=== PATIENT | male | born 1965 | race Caucasian/White ===

== ENCOUNTER 2018-09-16 07:09 | Day surgery (SDC) | payer MEDICARE, MEDICAID ==
[~2018-09-16 07:09] MED LIST: Lidocaine 2% Viscous Solution 15 ML Cup ONE; Lidocaine 4% Top Soln 50 ML Bottle ONE
[2018-09-16] MEDS ORDERED: Dextrose 5%-Lactated Ringers 1,000 ML IV SCH (07:15)
[2018-09-16] MEDS ORDERED: Propofol 200 MG/20 ML SDV ONE ×2 (07:16→09:40)
[2018-09-16] MEDS ORDERED: fentaNYL 100 MCG/2 ML SDV ONE (07:16)
[2018-09-16] MEDS ORDERED: Midazolam 1 MG/ML 2 ML SDV ONE (07:16)
[2018-09-16] MEDS ORDERED: Lidocaine 4% Top Soln LTA 4 ML Syringe Kit ONE (07:16)
[2018-09-16 11:15] VITALS: BP 102/59
--- NOTE | 2018-09-19 12:00 | OR ---
DATE OF PROCEDURE: 09/16/2018 PREOPERATIVE DIAGNOSIS: Left upper lobe mass. POSTOPERATIVE DIAGNOSIS: Left upper lobe mass. PROCEDURE: Flexible bronchoscopy with tracheobronchial washings: 1. Brushings to left upper lobe (69855). 2. Bronchoalveolar lavage to left upper lobe (68060). ANESTHESIA: IV sedation plus topical. 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 Plan is to do flexible bronchoscopy with brushings and/or BAL as indicated. The lesion was fairly peripheral and not amenable to direct a biopsy from a bronchoscopic approach. Potential risks of the procedure including bleeding, infection, aspiration of gastric contents and such were reviewed, and the patient wishes to proceed. DETAILS OF PROCEDURE: The patient was taken to the operating room and placed in the supine position. IV sedation was administered, after which the nasal passages and pharynx were then anesthetized with 1% lidocaine and translaryngeal injection of lidocaine placed per anesthesia. Bronchoscope was passed to the left side of the nose. Visualized nasopharynx and hypopharynx were unremarkable. Cord motion was symmetrical. As one entered the trachea, there is no splaying of the tracheal course. There is generally some mucoid secretions present throughout the tracheobronchial tree. The right tracheobronchial tree was entirely normal. Grossly, the left side was likewise normal other than for the mucosal secretions. At this point, diffuse tracheobronchial washings were obtained. The lesion appears to be in the anterior segment of the left upper lobe. Given this, two sets of brushings were obtained distally in that area and sent for cytologic evaluation. Following this, with occlusion of the anterior segmental bronchus, 200 mL of saline was injected and bronchoalveolar lavage accomplished with ejaculation of fluid in 2 containers and sent for full workup. There were no other complications. The patient was taken to the recovery room in satisfactory condition after withdrawal of the scope. The plan will be to await the cytologic evaluation. If these are diagnostic, we will set the patient up with Medical Oncology. If not, we will set him up for a CT- guided needle biopsy of the fairly large peripheral left upper lobe lesion later next week. Joseph Francisco MD /[id number] [facility]
== END 2018-09-16 12:15 | disposition home or self-care (01) ==
LOC: JP.SDS 07:09
PROVIDERS: ATTEND Surgery
DX: R91.1 Solitary pulmonary nodule (principal); B95.3 Streptococcus pneumoniae as the cause of diseases classified elsewhere; F17.210 Nicotine dependence, cigarettes, uncomplicated
CPT/HCPCS: 31624; 87015; 87070; 87102; 87116; 87184; 87205; 87206; 87220; A9270; J2250; J2704; J3010; J7042; 88112; 88305

== ENCOUNTER 2018-10-10 06:27 | Inpatient (IN) | payer MEDICARE, MEDICAID ==
[2018-10-10] MEDS ORDERED: Acetaminophen 500 MG Tab PO ONE (06:45)
[2018-10-10] MEDS ORDERED: Meropenem 500 MG SDV ONE (07:08)
[2018-10-10] MEDS ORDERED: Bupivacaine 0.5%/EPINEPHrine 1:200,000 50 ML MDV ONE (07:08)
[2018-10-10] MEDS ORDERED: Albuterol 0.083% 2.5 MG/3 ML Neb Soln NEB ONE (07:31)
[2018-10-10] MEDS ORDERED: Albuterol/Ipratropium 3.0-0.5 MG/3 ML Neb Soln ONE (07:37)
[2018-10-10] MEDS ORDERED: Dextrose 5%-Lactated Ringers 1,000 ML IV SCH (08:00)
[2018-10-10] MEDS ORDERED: Naloxone 0.4 MG/ML SDV IVPUSH PRN (08:34)
[2018-10-10] MEDS ORDERED: fentaNYL 250 MCG/5 ML SDV ONE (08:35)
[2018-10-10] MEDS ORDERED: Sodium Chloride 0.9% 500 ML ONE (08:43)
[2018-10-10] MEDS ORDERED: Rocuronium 50 MG/5 ML Vial ONE ×2 (08:43→10:37)
[2018-10-10] MEDS ORDERED: Neostigmine Methylsulfate 1 MG/ML 5 ML Syringe ONE (08:43)
[2018-10-10] MEDS ORDERED: Succinylcholine 200 MG/10 ML MDV ONE (08:43)
[2018-10-10] MEDS ORDERED: Propofol 200 MG/20 ML SDV ONE (08:43)
[2018-10-10] MEDS ORDERED: Glycopyrrolate 0.2 MG/ML 5 ML MDV ONE (08:43)
[2018-10-10] MEDS ORDERED: Dexamethasone 4 MG/ML SDV ONE (08:43)
[2018-10-10] MEDS ORDERED: Heparin Sodium 5,000 Units/ML Vial ONE (08:43)
[2018-10-10] MEDS ORDERED: Ondansetron 4 MG/2 ML SDV ONE (08:43)
[2018-10-10] MEDS ORDERED: Lidocaine 1% 2 ML ONE (08:57)
[2018-10-10] MEDS ORDERED: Midazolam 1 MG/ML 2 ML SDV ONE (08:58)
[2018-10-10] MEDS ORDERED: ceFAZolin 2 GM in Premix Bag 1 BAG IV ONE (09:15)
[2018-10-10] MEDS ORDERED: Lactated Ringers 1,000 ML ONE (09:45)
[2018-10-10] MEDS ORDERED: fentaNYL 100 MCG/2 ML SDV ONE (09:46)
[2018-10-10] MEDS ORDERED: Sodium Chloride 0.9% 10 ML ONE (09:46)
--- NOTE | 2018-10-10 13:32 | CR ---
CHEST: Portable CLINICAL HISTORY:Left thoracotomy COMPARISON:09/29/2018 FINDINGS: Patient is status post left thoracotomy for partial laminectomy. There are 2 left chest tubes in place. There is subcutaneous air. There is a right jugular catheter in superior vena cava. Right lung is clear. Impression: Status post left partial pneumonectomy tubes and catheters are in good position.
[2018-10-10] MEDS ORDERED: Ondansetron 4 MG/2 ML SDV IVPUSH PRN (14:41)
[2018-10-10] MEDS ORDERED: hydrOXYzine HCl 100 MG/2 ML SDV IM PRN (14:42)
[2018-10-10] MEDS: fentaNYL 2,500 MCG in Sodium Chloride 0.9% 200 ML EPIDUR SCH (14:49)
[2018-10-10] MEDS: Dextrose 5%-Lactated Ringers 1,000 ML IV SCH ×2 (15:34→21:00)
[2018-10-10] MEDS: Pantoprazole 40 MG Vial IV SCH (16:20)
[2018-10-10] MEDS: ceFAZolin 2 GM in Premix Bag 1 BAG IV SCH (16:22)
[2018-10-10] MEDS: Nicotine 21 MG/24 Hr Patch TRDERM SCH (17:54)
[2018-10-10] MEDS: Acetaminophen 500 MG Tab PO SCH (20:51)
[2018-10-10] MEDS: atorvaSTATin 20 MG Tab PO SCH (20:51)
[2018-10-11] MEDS: ceFAZolin 2 GM in Premix Bag 1 BAG IV SCH ×3 (01:21→16:06)
[2018-10-11] MEDS: Acetaminophen 500 MG Tab PO SCH ×4 (01:29→20:15)
[2018-10-11] MEDS: Dextrose 5%-Lactated Ringers 1,000 ML IV SCH ×3 (03:16→21:14)
--- NOTE | 2018-10-11 06:53 | PCM.PN ---
- General Info Date of Service: 10/11/18 Functional Status: Reports: Pain Controlled, Tolerating Diet - Review of Systems General: Reports: No Symptoms HEENT: Reports: No Symptoms Pulmonary: Reports: No Symptoms Cardiovascular: Reports: No Symptoms Gastrointestinal: Reports: No Symptoms Genitourinary: Reports: No Symptoms Musculoskeletal: Reports: No Symptoms Skin: Reports: No Symptoms Neurological: Reports: No Symptoms Psychiatric: Reports: No Symptoms - Patient Data Vitals - Most Recent: Last Vital Signs Temp 36.7 C 10/11/18 04:00 Pulse 49 L 10/11/18 05:51 Resp 17 10/11/18 05:51 BP 102/38 L 10/11/18 05:51 Pulse Ox 96 10/11/18 05:51 Weight - Most Recent: 82.1 kg I&O - Last 24 Hours: Intake & Output 10/10/18 10/10/18 10/11/18 14:59 22:59 06:59 Intake Total 796 1939 Output Total 200 1555 Balance 596 384 Imaging Impressions - Last 24 Hours: Chest x-ray shows good inflation of L lower lobe of lung. Lung markings throughout all lung dominguez. Subcutaneous air noted which is normal at this time. High riding diaphragm on L side which is normal due to lobectomy. Lab Results Last 24 Hours: Laboratory Results - last 24 hr 10/10/18 10/10/18 10/10/18 Range/Units 07:00 07:15 12:40 WBC (4.5-11.0) K/uL RBC (4.30-5.90) M/uL Hgb (12.0-15.0) g/dL Hct (40.0-54.0) % MCV (80-98) fL MCH (27-31) pg MCHC (32-36) % Plt Count (150-400) K/uL Bleeding Time 6.0 (2.5-9.5) min Puncture Site A-line ABG pH 7.297 L (7.350-7.450) ABG pCO2 54.2 H (35.0-42.0) mmHg ABG pO2 85.9 (75.0-100.0) mmHg ABG HCO3 25.7 (22.0-26.0) mmol/L ABG Total CO2 23.3 (23.0-27.0) mmol/L ABG O2 Saturation 95.2 (95.0-98.0) % ABG O2 Content 17.6 (15.0-23.0) %vol ABG Base Excess -1.1 mm/L ABG Hemoglobin 13.7 (13.5-18.0) g/dL ABG Oxyhemoglobin 91.2 % ABG Carboxyhemoglobin 3.4 H (0.0-1.6) % ABG Methemoglobin 0.8 % Toi Test Not performed O2 Delivery Device Nasal cannula Oxygen Flow Rate L Sodium (140-148) mmol/L Potassium (3.6-5.2) mmol/L Chloride (100-108) mmol/L Carbon Dioxide (21-32) mmol/L Anion Gap (5.0-14.0) mmol/L BUN (7-18) mg/dL Creatinine (0.8-1.3) mg/dL Est Cr Clr Drug Dosing mL/min Estimated GFR (MDRD) (>60) Glucose (74-106) mg/dL Calcium (8.5-10.1) mg/dL Phosphorus (2.5-4.9) mg/dL Magnesium (1.8-2.4) mg/dL Total Bilirubin (0.2-1.0) mg/dL AST (15-37) U/L ALT (12-78) U/L Alkaline Phosphatase (46-116) U/L NT-Pro-B Natriuret Pep (5-125) pg/mL Total Protein (6.4-8.2) g/dL Albumin (3.4-5.0) g/dL Globulin (2.3-3.5) g/dL Albumin/Globulin Ratio (1.2-2.2) Blood Type A POSITIVE Gel Antibody Screen Negative Crossmatch See Detail 10/10/18 10/11/18 10/11/18 Range/Units 17:00 04:05 04:05 WBC 14.6 H (4.5-11.0) K/uL RBC 4.06 L (4.30-5.90) M/uL Hgb 12.3 D (12.0-15.0) g/dL Hct 37.0 L (40.0-54.0) % MCV 91 (80-98) fL MCH 30 (27-31) pg MCHC 33 (32-36) % Plt Count 225 (150-400) K/uL Bleeding Time (2.5-9.5) min Puncture Site A-line ABG pH 7.355 (7.350-7.450) ABG pCO2 46.4 H (35.0-42.0) mmHg ABG pO2 61.4 L (75.0-100.0) mmHg ABG HCO3 25.2 (22.0-26.0) mmol/L ABG Total CO2 22.8 L (23.0-27.0) mmol/L ABG O2 Saturation 91.2 L (95.0-98.0) % ABG O2 Content 16.0 (15.0-23.0) %vol ABG Base Excess -0.1 mm/L ABG Hemoglobin 13.0 L (13.5-18.0) g/dL ABG Oxyhemoglobin 87.9 % ABG Carboxyhemoglobin 2.9 H (0.0-1.6) % ABG Methemoglobin 0.7 % Toi Test A-line O2 Delivery Device Nasal cannula Oxygen Flow Rate 0 L Sodium 137 L (140-148) mmol/L Potassium 4.4 (3.6-5.2) mmol/L Chloride 102 (100-108) mmol/L Carbon Dioxide 28 (21-32) mmol/L Anion Gap 11.4 (5.0-14.0) mmol/L BUN 13 (7-18) mg/dL Creatinine 0.7 L (0.8-1.3) mg/dL Est Cr Clr Drug Dosing 132.41 mL/min Estimated GFR (MDRD) > 60 (>60) Glucose 142 H (74-106) mg/dL Calcium 8.4 L (8.5-10.1) mg/dL Phosphorus 3.0 (2.5-4.9) mg/dL Magnesium 1.6 L (1.8-2.4) mg/dL Total Bilirubin 0.4 (0.2-1.0) mg/dL AST 44 H (15-37) U/L ALT 29 (12-78) U/L Alkaline Phosphatase 48 (46-116) U/L NT-Pro-B Natriuret Pep 723 H (5-125) pg/mL Total Protein 6.2 L (6.4-8.2) g/dL Albumin 3.1 L (3.4-5.0) g/dL Globulin 3.1 (2.3-3.5) g/dL Albumin/Globulin Ratio 1.0 L (1.2-2.2) Blood Type Gel Antibody Screen Crossmatch 10/11/18 Range/Units 04:10 WBC (4.5-11.0) K/uL RBC (4.30-5.90) M/uL Hgb (12.0-15.0) g/dL Hct (40.0-54.0) % MCV (80-98) fL MCH (27-31) pg MCHC (32-36) % Plt Count (150-400) K/uL Bleeding Time (2.5-9.5) min Puncture Site Line ABG pH 7.403 (7.350-7.450) ABG pCO2 42.1 H (35.0-42.0) mmHg ABG pO2 98.5 (75.0-100.0) mmHg ABG HCO3 25.8 (22.0-26.0) mmol/L ABG Total CO2 23.2 (23.0-27.0) mmol/L ABG O2 Saturation 97.9 (95.0-98.0) % ABG O2 Content 16.6 (15.0-23.0) %vol ABG Base Excess 1.4 mm/L ABG Hemoglobin 12.4 L (13.5-18.0) g/dL ABG Oxyhemoglobin 94.5 % ABG Carboxyhemoglobin 2.8 H (0.0-1.6) % ABG Methemoglobin 0.7 % Toi Test O2 Delivery Device Nasal cannula Oxygen Flow Rate 2 L Sodium (140-148) mmol/L Potassium (3.6-5.2) mmol/L Chloride (100-108) mmol/L Carbon Dioxide (21-32) mmol/L Anion Gap (5.0-14.0) mmol/L BUN (7-18) mg/dL Creatinine (0.8-1.3) mg/dL Est Cr Clr Drug Dosing mL/min Estimated GFR (MDRD) (>60) Glucose (74-106) mg/dL Calcium (8.5-10.1) mg/dL Phosphorus (2.5-4.9) mg/dL Magnesium (1.8-2.4) mg/dL Total Bilirubin (0.2-1.0) mg/dL AST (15-37) U/L ALT (12-78) U/L Alkaline Phosphatase (46-116) U/L NT-Pro-B Natriuret Pep (5-125) pg/mL Total Protein (6.4-8.2) g/dL Albumin (3.4-5.0) g/dL Globulin (2.3-3.5) g/dL Albumin/Globulin Ratio (1.2-2.2) Blood Type Gel Antibody Screen Crossmatch Med Orders - Current: Current Medications Acetaminophen (Tylenol Extra Strength) 1,000 mg PO Q6H [facility] Last Admin: 10/11/18 01:29 Dose: 1,000 mg Aripiprazole (Abilify) 15 mg PO DAILY [facility] Aspirin (Halfprin) 81 mg PO DAILY [facility] Atorvastatin Calcium (Lipitor) 40 mg PO BEDTIME [facility] Last Admin: 10/10/18 20:51 Dose: 40 mg Escitalopram Oxalate (Lexapro) 20 mg PO DAILY [facility] Hydroxyzine HCl (Vistaril) 100 mg IM Q4H PRN PRN Reason: PAIN Fentanyl 2,500 mcg/ Sodium (Chloride) 250 mls @ 0 mls/hr EPIDUR TITRATE [facility]; Protocol Last Admin: 10/10/18 14:49 Dose: 120 mcg/hr, 12 mls/hr Dextrose/Lactated Ringer's (Dextrose 5%-Lactated Ringers) 1,000 mls @ 175 mls/ hr IV ASDIRECTED [facility] Last Admin: 10/11/18 03:16 Dose: 175 mls/hr Cefazolin Sodium/Dextrose 2 gm (/ Premix) 50 mls @ 100 mls/hr IV Q8H [facility] Stop: 10/13/18 09:29 Last Admin: 10/11/18 01:21 Dose: 100 mls/hr Lisinopril (Prinivil) 2.5 mg PO DAILY [facility] Naloxone HCl (Narcan) 0.1 mg IVPUSH Q5M PRN PRN Reason: RESP RATE LESS THAN 6/MINUTE Nicotine (Habitrol) 21 mg TRDERM DAILY [facility] Last Admin: 10/10/18 17:54 Dose: 21 mg Ondansetron HCl (Zofran) 4 mg IVPUSH Q4H PRN PRN Reason: Nausea Pantoprazole Sodium (Protonix Iv) 40 mg IV Q24H [facility] Last Admin: 10/10/18 16:20 Dose: 40 mg Ramelteon (Rozerem) 8 mg PO BEDTIME [facility] Last Admin: 10/10/18 20:51 Dose: 8 mg Discontinued Medications Acetaminophen (Tylenol Extra Strength) 1,000 mg PO ONETIME ONE Stop: 10/10/18 06:46 Last Admin: 10/10/18 06:53 Dose: 1,000 mg Albuterol (Proventil Neb Soln) 2.5 mg NEB ONETIME ONE Stop: 10/10/18 07:32 Last Admin: 10/10/18 07:48 Dose: 2.5 mg Albuterol/Ipratropium (Duoneb 3.0-0.5 Mg/3 Ml) Confirm Administered Dose 3 ml .ROUTE .STK-MED ONE Stop: 10/10/18 07:38 Last Admin: 10/10/18 11:02 Dose: Not Given Bupivacaine HCl/Epinephrine Bitart (Marcaine 0.5%/Epinephrine 1:200,000) Confirm Administered Dose 50 ml .ROUTE .STK-MED ONE Stop: 10/10/18 07:09 Last Admin: 10/10/18 10:18 Dose: 50 ml Dexamethasone (Dexamethasone) Confirm Administered Dose 4 mg .ROUTE .STK-MED ONE Stop: 10/10/18 08:44 Fentanyl (Sublimaze) Confirm Administered Dose 250 mcg .ROUTE .STK-MED ONE Stop: 10/10/18 08:36 Fentanyl (Sublimaze) Confirm Administered Dose 100 mcg .ROUTE .STK-MED ONE Stop: 10/10/18 09:47 Glycopyrrolate (Robinul) Confirm Administered Dose 1 mg .ROUTE .STK-MED ONE Stop: 10/10/18 08:44 Heparin Sodium (Porcine) (Heparin Sodium) Confirm Administered Dose 5,000 units .ROUTE .STK-MED ONE Stop: 10/10/18 08:44 Cefazolin Sodium/Dextrose 2 gm (/ Premix) 50 mls @ 100 mls/hr IV ONETIME ONE Stop: 10/10/18 09:44 Last Admin: 10/10/18 09:45 Dose: 100 mls/hr Dextrose/Lactated Ringer's (Dextrose 5%-Lactated Ringers) 1,000 mls @ 100 mls/ hr IV ASDIRECTED [facility] Last Admin: 10/10/18 07:35 Dose: 100 mls/hr Sodium Chloride (Normal Saline) Confirm Administered Dose 500 mls @ as directed .ROUTE .STK-MED ONE Stop: 10/10/18 08:44 Lidocaine HCl (Xylocaine-Mpf 1%) Confirm Administered Dose 2 mls @ as directed .ROUTE .STK-MED ONE Stop: 10/10/18 08:58 Lactated Ringer's (Ringers, Lactated) Confirm Administered Dose 1,000 mls @ as directed .ROUTE .STK-MED ONE Stop: 10/10/18 09:46 Sodium Chloride (Normal Saline) Confirm Administered Dose 10 mls @ as directed .ROUTE .ST-MED ONE Stop: 10/10/18 09:47 Acetaminophen (Ofirmev) 100 mls @ 400 mls/hr IV Q6H [facility] Stop: 10/10/18 14:14 Last Admin: 10/10/18 13:57 Dose: 400 mls/hr Meropenem (Merrem) Confirm Administered Dose 500 mg .ROUTE .ST-MED ONE Stop: 10/10/18 07:09 Last Admin: 10/10/18 10:18 Dose: 500 mg Midazolam HCl (Versed 1 Mg/Ml) Confirm Administered Dose 2 mg .ROUTE .ST-MED ONE Stop: 10/10/18 08:59 Neostigmine Methylsulfate (Neostigmine) Confirm Administered Dose 5 mg .ROUTE .ST-MED ONE Stop: 10/10/18 08:44 Ondansetron HCl (Zofran) Confirm Administered Dose 4 mg .ROUTE .ST-MED ONE Stop: 10/10/18 08:44 Propofol (Diprivan 20 Ml) Confirm Administered Dose 200 mg .ROUTE .STK-MED ONE Stop: 10/10/18 08:44 Rocuronium [place] (Zemuron) Confirm Administered Dose 50 mg .ROUTE .STK-MED ONE Stop: 10/10/18 08:44 Rocuronium [place] (Zemuron) Confirm Administered Dose 50 mg .ROUTE .STK-MED ONE Stop: 10/10/18 10:38 Succinylcholine Chloride (Quelicin) Confirm Administered Dose 200 mg .ROUTE .ST -MED ONE Stop: 10/10/18 08:44 - Exam General: Alert, Oriented HEENT: Pupils Equal, Pupils Reactive, EOMI, Mucous Membr. Moist/[place] Neck: Supple Lungs: Clear to Auscultation, Normal Respiratory Effort Cardiovascular: Regular Rate, Regular Rhythm Extremities: Normal Inspection, No Pedal Edema Skin: Warm, Dry, Intact Wound/Incisions: Healing Well Neurological: No New Focal Deficit Psy/Mental Status: Alert, Normal Affect, Normal Mood Physical Findings Comments:: Chest tube output is , the fluid is fluctuating in the tube, no bubbles in container, and chest x-ray as noted above. - Problem List & Annotations (1) Status post lobectomy of lung SNOMED Code(s): 76557680557334204, 707917231, [id number] Code(s): Z90.2 - ACQUIRED ABSENCE OF LUNG [PART OF] Status: Resolved Priority: Medium Current Visit: Yes - Problem List Review Problem List Initiated/Reviewed/Updated: Yes - My Orders Last 24 Hours: Decrease IV to 100 ? Begin metoprolol 25 mg PO BID Begin lisinopril 2.5 mg PO daily Begin magnesium sulfate 2 g IV piggyback q6 hours x48 hours Begin colace 100 mg BID 2x/day Begin full liquid diet Continue daily chest x-rays Order CBC, CMP, phosphate, BNP - Assessment Assessment:: 52 YO male patient Steven Jett is a post surgical patient of L upper lung lobectomy. Is in the ICU and pain is being tolerated well. Chest tube is draining well, is fluctuating, does not have bubbles, and chest x-ray has lung markings throughout. Chest x-rays will continue daily. ROS is negative for all pertinent positives or negatives. Patient will be continually monitored closely. No questions or concerns at this time. - Plan Plan:: Begin medications as noted. Monitor labs as noted.
[2018-10-11] MEDS: fentaNYL 2,500 MCG in Sodium Chloride 0.9% 200 ML EPIDUR SCH (07:19)
[2018-10-11] MEDS ORDERED: Metoprolol Tartrate 25 MG Tab PO SCH (09:00)
[2018-10-11] MEDS: Aspirin 81 MG Tab.EC PO SCH (09:09)
[2018-10-11] MEDS: Escitalopram 20 MG Tab PO SCH (09:09)
[2018-10-11] MEDS: Docusate Sodium 100 MG Cap PO SCH ×2 (09:09→20:15)
[2018-10-11] MEDS: ARIPiprazole 10 MG Tab PO SCH (09:10)
[2018-10-11] MEDS: Nicotine 21 MG/24 Hr Patch TRDERM SCH (09:11)
[2018-10-11] MEDS: Lisinopril 2.5 MG Tab PO SCH (09:45)
[2018-10-11] MEDS: Magnesium Sulfate/Water 2 GM in Premix Bag 1 BAG IV SCH ×3 (09:50→21:09)
[2018-10-11] MEDS: Pantoprazole 40 MG Vial IV SCH (16:43)
[2018-10-11] MEDS: atorvaSTATin 20 MG Tab PO SCH (20:16)
[2018-10-12] MEDS: ceFAZolin 2 GM in Premix Bag 1 BAG IV SCH ×3 (00:28→16:59)
[2018-10-12] MEDS: Acetaminophen 500 MG Tab PO SCH ×4 (01:11→20:13)
[2018-10-12] MEDS: Magnesium Sulfate/Water 2 GM in Premix Bag 1 BAG IV SCH ×4 (03:22→21:10)
[2018-10-12] MEDS: fentaNYL 2,500 MCG in Sodium Chloride 0.9% 200 ML EPIDUR SCH (03:40)
[2018-10-12] MEDS ORDERED: Furosemide 20 MG/2 ML VIAL IVPUSH ONE (08:00)
[2018-10-12] MEDS: Bisacodyl 5 MG Tab PO SCH ×2 (08:35→20:13)
[2018-10-12] MEDS: ARIPiprazole 10 MG Tab PO SCH (08:35)
[2018-10-12] MEDS: Nicotine 21 MG/24 Hr Patch TRDERM SCH (08:36)
[2018-10-12] MEDS: Docusate Sodium 100 MG Cap PO SCH ×2 (08:36→20:13)
[2018-10-12] MEDS: Escitalopram 20 MG Tab PO SCH (08:37)
[2018-10-12] MEDS: Aspirin 81 MG Tab.EC PO SCH (08:37)
[2018-10-12] MEDS: Metoprolol Tartrate 25 MG Tab PO SCH ×2 (08:38→20:15)
[2018-10-12] MEDS: Clopidogrel 75 MG Tab PO SCH (08:38)
[2018-10-12] MEDS: Lisinopril 2.5 MG Tab PO SCH (08:39)
[2018-10-12] MEDS: Dextrose 5%-Lactated Ringers 1,000 ML IV SCH ×2 (12:31→22:36)
--- NOTE | 2018-10-12 15:59 | PCM.SURGPN ---
- General Info Date of Service: 10/12/18 Date of Surgery/Procedure: 10/10/18 Post-Op Diagnosis: Post op resection left lung mass with medistinal lymph node disection - Review of Systems Systems Review Comment:: 52 YO male Steven Jett is day 2 post op from resection of left lung mass with mediastinal lymph node dissection. Patient is in the ICU. The patient's pain is controlled with a spinal epidural and scheduled Tylenol PO. The patient does not have any pertinent positives or negatives to note from ROS but did not he was dizzy. The chest x-ray continues to show subcutaneous air, lung markings extending to all lung dominguez, and a high riding L diaphragm and this is to be expected. His chest tube is in place without any signs of infection. The fluid in the tubing is fluctuating; however, bubbles are appearing in the container which indicates an air leak. The fluid output was 1,350 in 24 hours. - Patient Data Vitals - Most Recent: Last Vital Signs Temp 36.6 C 10/12/18 14:55 Pulse 62 10/12/18 14:55 Resp 14 10/12/18 14:55 BP 103/74 10/12/18 14:55 Pulse Ox 91 L 10/12/18 14:55 Weight - Most Recent: 82.1 kg I&O - Last 24 Hours: Intake & Output 10/12/18 10/12/18 10/12/18 06:59 14:59 22:59 Intake Total 1360 Output Total 1825 2885 Balance -1825 -1525 Imaging Impressions - Last 24 Hrs: Noted in subjective. Lab Results Last 24 Hrs: Laboratory Results - last 24 hr 10/12/18 10/12/18 10/12/18 Range/Units 03:12 03:15 03:17 WBC 13.4 H (4.5-11.0) K/uL RBC 3.96 L (4.30-5.90) M/uL Hgb 11.9 L (12.0-15.0) g/dL Hct 36.0 L (40.0-54.0) % MCV 91 (80-98) fL MCH 30 (27-31) pg MCHC 33 (32-36) % Plt Count 197 (150-400) K/uL Puncture Site A-line ABG pH 7.372 (7.350-7.450) ABG pCO2 50.4 H (35.0-42.0) mmHg ABG pO2 71.3 L (75.0-100.0) mmHg ABG HCO3 28.5 H (22.0-26.0) mmol/L ABG Total CO2 26.0 (23.0-27.0) mmol/L ABG O2 Saturation 94.2 L (95.0-98.0) % ABG O2 Content 15.7 (15.0-23.0) %vol ABG Base Excess 3.0 mm/L ABG Hemoglobin 12.1 L (13.5-18.0) g/dL ABG Oxyhemoglobin 91.9 % ABG Carboxyhemoglobin 1.7 H (0.0-1.6) % ABG Methemoglobin 0.7 % Toi Test A-line O2 Delivery Device Nasal cannula Oxygen Flow Rate 2 L Sodium 132 L (140-148) mmol/L Potassium 4.1 (3.6-5.2) mmol/L Chloride 99 L (100-108) mmol/L Carbon Dioxide 30 (21-32) mmol/L Anion Gap 7.1 (5.0-14.0) mmol/L BUN 10 (7-18) mg/dL Creatinine 0.6 L (0.8-1.3) mg/dL Est Cr Clr Drug Dosing 154.70 mL/min Estimated GFR (MDRD) > 60 (>60) Glucose 129 H (74-106) mg/dL Calcium 7.9 L (8.5-10.1) mg/dL Phosphorus 2.2 L (2.5-4.9) mg/dL Total Bilirubin 0.4 (0.2-1.0) mg/dL AST 41 H (15-37) U/L ALT 27 (12-78) U/L Alkaline Phosphatase 51 (46-116) U/L NT-Pro-B Natriuret Pep 1160 H (5-125) pg/mL Total Protein 6.0 L (6.4-8.2) g/dL Albumin 3.0 L (3.4-5.0) g/dL Globulin 3.0 (2.3-3.5) g/dL Albumin/Globulin Ratio 1.0 L (1.2-2.2) Med Orders - Current: Current Medications Acetaminophen (Tylenol Extra Strength) 1,000 mg PO Q6H [facility] Last Admin: 10/12/18 14:52 Dose: 1,000 mg Aripiprazole (Abilify) 15 mg PO DAILY [facility] Last Admin: 10/12/18 08:35 Dose: 15 mg Aspirin (Halfprin) 81 mg PO DAILY [facility] Last Admin: 10/12/18 08:37 Dose: 81 mg Atorvastatin Calcium (Lipitor) 40 mg PO BEDTIME [facility] Last Admin: 10/11/18 20:16 Dose: 40 mg Bisacodyl (Dulcolax) 10 mg PO BID [facility] Last Admin: 10/12/18 08:35 Dose: 10 mg Clopidogrel Bisulfate (Plavix) 75 mg PO DAILY [facility] Last Admin: 10/12/18 08:38 Dose: 75 mg Docusate Sodium (Colace) 100 mg PO BID [facility] Last Admin: 10/12/18 08:36 Dose: 100 mg Escitalopram Oxalate (Lexapro) 20 mg PO DAILY [facility] Last Admin: 10/12/18 08:37 Dose: 20 mg Hydroxyzine HCl (Vistaril) 100 mg IM Q4H PRN PRN Reason: PAIN Fentanyl 2,500 mcg/ Sodium (Chloride) 250 mls @ 0 mls/hr EPIDUR TITRATE [facility]; Protocol Last Admin: 10/12/18 03:40 Dose: 120 mcg/hr, 12 mls/hr Cefazolin Sodium/Dextrose 2 gm (/ Premix) 50 mls @ 100 mls/hr IV Q8H [facility] Stop: 10/13/18 09:29 Last Admin: 10/12/18 08:25 Dose: 100 mls/hr Dextrose/Lactated Ringer's (Dextrose 5%-Lactated Ringers) 1,000 mls @ 100 mls/ hr IV ASDIRECTED [facility] Last Admin: 10/12/18 12:31 Dose: 100 mls/hr Magnesium Sulfate 2 gm/ Premix 50 mls @ 12.5 mls/hr IV Q6H [facility] Stop: 10/13/18 07:59 Last Admin: 10/12/18 10:23 Dose: 12.5 mls/hr Lisinopril (Prinivil) 2.5 mg PO DAILY [facility] Last Admin: 10/12/18 08:39 Dose: 2.5 mg Metoprolol Tartrate (Lopressor) 25 mg PO BID [facility] Last Admin: 10/12/18 08:38 Dose: 25 mg Naloxone HCl (Narcan) 0.1 mg IVPUSH Q5M PRN PRN Reason: RESP RATE LESS THAN 6/MINUTE Nicotine (Habitrol) 21 mg TRDERM DAILY [facility] Last Admin: 10/12/18 08:36 Dose: 21 mg Ondansetron HCl (Zofran) 4 mg IVPUSH Q4H PRN PRN Reason: Nausea Pantoprazole Sodium (Protonix Iv) 40 mg IV Q24H [facility] Last Admin: 10/11/18 16:43 Dose: 40 mg Ramelteon (Rozerem) 8 mg PO BEDTIME [facility] Last Admin: 10/11/18 20:16 Dose: 8 mg Discontinued Medications Acetaminophen (Tylenol Extra Strength) 1,000 mg PO ONETIME ONE Stop: 10/10/18 06:46 Last Admin: 10/10/18 06:53 Dose: 1,000 mg Albuterol (Proventil Neb Soln) 2.5 mg NEB ONETIME ONE Stop: 10/10/18 07:32 Last Admin: 10/10/18 07:48 Dose: 2.5 mg Albuterol/Ipratropium (Duoneb 3.0-0.5 Mg/3 Ml) Confirm Administered Dose 3 ml .ROUTE .STK-MED ONE Stop: 10/10/18 07:38 Last Admin: 10/10/18 11:02 Dose: Not Given Bupivacaine HCl/Epinephrine Bitart (Marcaine 0.5%/Epinephrine 1:200,000) Confirm Administered Dose 50 ml .ROUTE .STK-MED ONE Stop: 10/10/18 07:09 Last Admin: 10/10/18 10:18 Dose: 50 ml Dexamethasone (Dexamethasone) Confirm Administered Dose 4 mg .ROUTE .STK-MED ONE Stop: 10/10/18 08:44 Fentanyl (Sublimaze) Confirm Administered Dose 250 mcg .ROUTE .STK-MED ONE Stop: 10/10/18 08:36 Fentanyl (Sublimaze) Confirm Administered Dose 100 mcg .ROUTE .STK-MED ONE Stop: 10/10/18 09:47 Furosemide (Lasix) 10 mg IVPUSH ONETIME ONE Stop: 10/12/18 08:01 Last Admin: 10/12/18 08:29 Dose: 10 mg Glycopyrrolate (Robinul) Confirm Administered Dose 1 mg .ROUTE .[facility]-MED ONE Stop: 10/10/18 08:44 Heparin Sodium (Porcine) (Heparin Sodium) Confirm Administered Dose 5,000 units .ROUTE .K-MED ONE Stop: 10/10/18 08:44 Cefazolin Sodium/Dextrose 2 gm (/ Premix) 50 mls @ 100 mls/hr IV ONETIME ONE Stop: 10/10/18 09:44 Last Admin: 10/10/18 09:45 Dose: 100 mls/hr Dextrose/Lactated Ringer's (Dextrose 5%-Lactated Ringers) 1,000 mls @ 100 mls/ hr IV ASDIRECTED [facility] Last Admin: 10/10/18 07:35 Dose: 100 mls/hr Sodium Chloride (Normal Saline) Confirm Administered Dose 500 mls @ as directed .ROUTE .[facility]-MED ONE Stop: 10/10/18 08:44 Lidocaine HCl (Xylocaine-Mpf 1%) Confirm Administered Dose 2 mls @ as directed .ROUTE .[facility]-MED ONE Stop: 10/10/18 08:58 Lactated Ringer's (Ringers, Lactated) Confirm Administered Dose 1,000 mls @ as directed .ROUTE .[facility]-MED ONE Stop: 10/10/18 09:46 Sodium Chloride (Normal Saline) Confirm Administered Dose 10 mls @ as directed .ROUTE .[facility]-MED ONE Stop: 10/10/18 09:47 Acetaminophen (Ofirmev) 100 mls @ 400 mls/hr IV Q6H [facility] Stop: 10/10/18 14:14 Last Admin: 10/10/18 13:57 Dose: 400 mls/hr Dextrose/Lactated Ringer's (Dextrose 5%-Lactated Ringers) 1,000 mls @ 175 mls/ hr IV ASDIRECTED [facility] Last Admin: 10/11/18 03:16 Dose: 175 mls/hr Meropenem (Merrem) Confirm Administered Dose 500 mg .ROUTE .STK-MED ONE Stop: 10/10/18 07:09 Last Admin: 10/10/18 10:18 Dose: 500 mg Metoprolol Tartrate (Lopressor) 25 mg PO BID [facility] Last Admin: 10/11/18 09:50 Dose: 25 mg Midazolam HCl (Versed 1 Mg/Ml) Confirm Administered Dose 2 mg .ROUTE .STK-MED ONE Stop: 10/10/18 08:59 Neostigmine Methylsulfate (Neostigmine) Confirm Administered Dose 5 mg .ROUTE .STK-MED ONE Stop: 10/10/18 08:44 Ondansetron HCl (Zofran) Confirm Administered Dose 4 mg .ROUTE .STK-MED ONE Stop: 10/10/18 08:44 Propofol (Diprivan 20 Ml) Confirm Administered Dose 200 mg .ROUTE .STK-MED ONE Stop: 10/10/18 08:44 Rocuronium Nelson (Zemuron) Confirm Administered Dose 50 mg .ROUTE .STK-MED ONE Stop: 10/10/18 08:44 Rocuronium Nelson (Zemuron) Confirm Administered Dose 50 mg .ROUTE .STK-MED ONE Stop: 10/10/18 10:38 Succinylcholine Chloride (Quelicin) Confirm Administered Dose 200 mg .ROUTE .STK -MED ONE Stop: 10/10/18 08:44 - Exam Wound/Incisions: Dressing Dry and Intact Quality Assessment: Supplemental Oxygen (2 L via NC), Urine Catheter (Output of 2885 mL), DVT Prophylaxis (SCDs) General: Alert, Oriented Neck: Supple Lungs: Clear to Auscultation, Normal Respiratory Effort Cardiovascular: Regular Rate, Regular Rhythm Extremities: No Pedal Edema Psy/Mental Status: Normal Affect, Normal Mood - Problem List & Annotations (1) Status post lobectomy of lung SNOMED Code(s): 84855080627176973, 302223648, [id number] Code(s): Z90.2 - ACQUIRED ABSENCE OF LUNG [PART OF] Status: Acute Priority: Medium Current Visit: Yes Annotation/Comment:: amor chowdary mass with mediastinal lymph node dissection - Problem List Review Problem List Initiated/Reviewed/Updated: Yes - My Orders Last 24 Hours: Active Orders 24 hr Category Date Time Status Communication Order [RC] ASDIRECTED Care 10/12/18 06:00 Active Regular Diet [DIET] Diet 10/12/18 Breakfast Active Chest 1V Frontal [CR] DAILY Exams 10/12/18 04:00 Taken Chest 1V Frontal [CR] DAILY Exams 10/13/18 04:00 Ordered Chest 1V Frontal [CR] DAILY Exams 10/14/18 04:00 Ordered Chest 1V Frontal [CR] DAILY Exams 10/15/18 04:00 Ordered CBC W/O DIFF,HEMOGRAM [HEME] Timed Lab 10/13/18 04:00 Ordered COMPREHENSIVE METABOLIC PN,CMP [CHEM] Timed Lab 10/13/18 04:00 Ordered MAGNESIUM [CHEM] Timed Lab 10/13/18 04:00 Ordered PHOSPHORUS [CHEM] Timed Lab 10/13/18 04:00 Ordered PRO B-TYPE NATRIUR PEPT,BNPPRO [CHEM] Timed Lab 10/13/18 04:00 Ordered Bisacodyl [Dulcolax] Med 10/12/18 09:00 Active 10 mg PO BID Clopidogrel [Plavix] Med 10/12/18 09:00 Active 75 mg PO DAILY Metoprolol Tartrate [Lopressor] Med 10/12/18 09:00 Active 25 mg PO BID Arterial Line Discontinue [OM.PC] Routine Oth 10/12/18 14:44 Ordered Medication Orders Acetaminophen (Tylenol Extra Strength) 1,000 mg PO Q6H [facility] Last Admin: 10/12/18 14:52 Dose: 1,000 mg Admin: 10/12/18 08:34 Dose: 1,000 mg Admin: 10/12/18 01:11 Dose: 1,000 mg Admin: 10/11/18 20:15 Dose: 1,000 mg Admin: 10/11/18 13:20 Dose: 1,000 mg Admin: 10/11/18 09:08 Dose: 1,000 mg Admin: 10/11/18 01:29 Dose: 1,000 mg Admin: 10/10/18 20:51 Dose: 1,000 mg Aripiprazole (Abilify) 15 mg PO DAILY [facility] Last Admin: 10/12/18 08:35 Dose: 15 mg Admin: 10/11/18 09:10 Dose: 15 mg Aspirin (Halfprin) 81 mg PO DAILY [facility] Last Admin: 10/12/18 08:37 Dose: 81 mg Admin: 10/11/18 09:09 Dose: 81 mg Atorvastatin Calcium (Lipitor) 40 mg PO BEDTIME [facility] Last Admin: 10/11/18 20:16 Dose: 40 mg Admin: 10/10/18 20:51 Dose: 40 mg Bisacodyl (Dulcolax) 10 mg PO BID [facility] Last Admin: 10/12/18 08:35 Dose: 10 mg Clopidogrel Bisulfate (Plavix) 75 mg PO DAILY [facility] Last Admin: 10/12/18 08:38 Dose: 75 mg Docusate Sodium (Colace) 100 mg PO BID [facility] Last Admin: 10/12/18 08:36 Dose: 100 mg Admin: 10/11/18 20:15 Dose: 100 mg Admin: 10/11/18 09:09 Dose: 100 mg Escitalopram Oxalate (Lexapro) 20 mg PO DAILY [facility] Last Admin: 10/12/18 08:37 Dose: 20 mg Admin: 10/11/18 09:09 Dose: 20 mg Hydroxyzine HCl (Vistaril) 100 mg IM Q4H PRN PRN Reason: PAIN Fentanyl 2,500 mcg/ Sodium (Chloride) 250 mls @ 0 mls/hr EPIDUR TITRATE [facility]; Protocol Last Admin: 10/12/18 03:40 Dose: 120 mcg/hr, 12 mls/hr Titration: 10/12/18 03:40 Dose: 120 mcg/hr, 12 mls/hr Admin: 10/11/18 07:19 Dose: 120 mcg/hr, 12 mls/hr Titration: 10/11/18 07:19 Dose: 120 mcg/hr, 12 mls/hr Admin: 10/10/18 14:49 Dose: 120 mcg/hr, 12 mls/hr Cefazolin Sodium/Dextrose 2 gm (/ Premix) 50 mls @ 100 mls/hr IV Q8H [facility] Stop: 10/13/18 09:29 Last Admin: 10/12/18 08:25 Dose: 100 mls/hr Infusion: 10/12/18 00:58 Dose: 100 mls/hr Admin: 10/12/18 00:28 Dose: 100 mls/hr Infusion: 10/11/18 16:36 Dose: 100 mls/hr Admin: 10/11/18 16:06 Dose: 100 mls/hr Infusion: 10/11/18 09:41 Dose: 100 mls/hr Admin: 10/11/18 09:11 Dose: 100 mls/hr Infusion: 10/11/18 01:51 Dose: 100 mls/hr Admin: 10/11/18 01:21 Dose: 100 mls/hr Infusion: 10/10/18 16:52 Dose: 100 mls/hr Admin: 10/10/18 16:22 Dose: 100 mls/hr Dextrose/Lactated Ringer's (Dextrose 5%-Lactated Ringers) 1,000 mls @ 100 mls/ hr IV ASDIRECTED [facility] Last Admin: 10/12/18 12:31 Dose: 100 mls/hr Infusion: 10/12/18 07:14 Dose: 100 mls/hr Admin: 10/11/18 21:14 Dose: 100 mls/hr Infusion: 10/11/18 19:20 Dose: 100 mls/hr Admin: 10/11/18 09:20 Dose: 100 mls/hr Magnesium Sulfate 2 gm/ Premix 50 mls @ 12.5 mls/hr IV Q6H [facility] Stop: 10/13/18 07:59 Last Admin: 10/12/18 10:23 Dose: 12.5 mls/hr Infusion: 10/12/18 07:22 Dose: 12.5 mls/hr Admin: 10/12/18 03:22 Dose: 12.5 mls/hr Infusion: 10/12/18 01:09 Dose: 12.5 mls/hr Admin: 10/11/18 21:09 Dose: 12.5 mls/hr Infusion: 10/11/18 20:37 Dose: 12.5 mls/hr Admin: 10/11/18 16:37 Dose: 12.5 mls/hr Infusion: 10/11/18 13:50 Dose: 12.5 mls/hr Admin: 10/11/18 09:50 Dose: 12.5 mls/hr Lisinopril (Prinivil) 2.5 mg PO DAILY [facility] Last Admin: 10/12/18 08:39 Dose: 2.5 mg Admin: 10/11/18 09:45 Dose: Not Given Metoprolol Tartrate (Lopressor) 25 mg PO BID [facility] Last Admin: 10/12/18 08:38 Dose: 25 mg Naloxone HCl (Narcan) 0.1 mg IVPUSH Q5M PRN PRN Reason: RESP RATE LESS THAN 6/MINUTE Nicotine (Habitrol) 21 mg TRDERM DAILY [facility] Last Admin: 10/12/18 08:36 Dose: 21 mg Admin: 10/11/18 09:11 Dose: 21 mg Admin: 10/10/18 17:54 Dose: 21 mg Ondansetron HCl (Zofran) 4 mg IVPUSH Q4H PRN PRN Reason: Nausea Pantoprazole Sodium (Protonix Iv) 40 mg IV Q24H [facility] Last Admin: 10/11/18 16:43 Dose: 40 mg Admin: 10/10/18 16:20 Dose: 40 mg Ramelteon (Rozerem) 8 mg PO BEDTIME [facility] Last Admin: 10/11/18 20:16 Dose: 8 mg Admin: 10/10/18 20:51 Dose: 8 mg - Assessment Assessment (Free Text/Narrative):: Assessment: Post Operative Progress Notes: Assistants: Hanny Steele PA-C and JARVIS Bryan Operation/Findings: L thoracotomy with 1) ANGIE lobectomy and 2) medistinal lymph node dissection Wound Classification: II Complications: No Estimated Blood Loss: about 100 u Date of Surgery: 10/10/2018 Surgeon: Joseph Francisco MD - Plan Plan (Free Text/Narrative):: Plan: 1. Chest tube to plain water seal to slow the air leak. 2. Regular diet. 3. Resume previous metoprolol order. 4. Start Docusate 100 mg PO BID until BM. 5. Start Lasix 10 mg IV this AM. 6. Start Plavix 75 mg PO daily. 7. Order CBC, CMP, Magnesium, Phos, BNP
[2018-10-12] MEDS: Pantoprazole 40 MG Vial IV SCH (16:04)
[2018-10-12] MEDS: atorvaSTATin 20 MG Tab PO SCH (20:14)
[2018-10-13] MEDS: fentaNYL 2,500 MCG in Sodium Chloride 0.9% 200 ML EPIDUR SCH (00:26)
[2018-10-13] MEDS: ceFAZolin 2 GM in Premix Bag 1 BAG IV SCH ×2 (00:45→08:38)
[2018-10-13] MEDS: Acetaminophen 500 MG Tab PO SCH ×4 (01:27→20:01)
[2018-10-13] MEDS: Magnesium Sulfate/Water 2 GM in Premix Bag 1 BAG IV SCH (03:11)
--- NOTE | 2018-10-13 04:47 | CRLCR ---
HISTORY: Follow-up chest tubes status post lung surgery. COMPARISON: From yesterday FINDINGS: A portable erect AP view of the chest was obtained at 0 400 hours. Again seen are 2 left-sided chest tubes. The previously seen tiny left apical pneumothorax has resolved. There is increased moderate subcutaneous emphysema throughout the left chest wall with stable moderate subcutaneous emphysema in the left neck. Again seen are changes of left upper lobectomy with surgical clips in the left hilum and mild shift of the mediastinum towards the left. There is no sign of any pulmonary infiltrate on either the left or right. The heart remains normal in size. There are sternal wires from median sternotomy. The mediastinum is otherwise normal in appearance. The osseous structures are normal in appearance for the patient`s age. IMPRESSION: Resolution of the previously seen tiny left apical pneumothorax. Continued satisfactory positioning of 2 left-sided chest tubes. Increased moderate left subcutaneous emphysema with stable moderate subcutaneous emphysema in the left neck. Again seen are changes from left upper lobectomy. Dictated by Ry Blankenship MD @ Oct 13 2018 4:45AM Signed by Dr. Ry Blankenship @ Oct 13 2018 4:47AM
[2018-10-13] MEDS ORDERED: Furosemide 20 MG/2 ML VIAL IV ONE (08:15)
[2018-10-13] MEDS: ARIPiprazole 10 MG Tab PO SCH (08:34)
[2018-10-13] MEDS: Nicotine 21 MG/24 Hr Patch TRDERM SCH (08:35)
[2018-10-13] MEDS: Escitalopram 20 MG Tab PO SCH (08:35)
[2018-10-13] MEDS: Ibuprofen 600 MG Tab PO SCH ×3 (08:35→20:02)
[2018-10-13] MEDS: Docusate Sodium 100 MG Cap PO SCH ×2 (08:36→20:03)
[2018-10-13] MEDS: Clopidogrel 75 MG Tab PO SCH (08:36)
[2018-10-13] MEDS: Metoprolol Tartrate 25 MG Tab PO SCH ×2 (08:36→20:04)
[2018-10-13] MEDS: Bisacodyl 5 MG Tab PO SCH ×2 (08:36→20:03)
[2018-10-13] MEDS: Aspirin 81 MG Tab.EC PO SCH (08:37)
[2018-10-13] MEDS: Lisinopril 2.5 MG Tab PO SCH (08:37)
[2018-10-13] MEDS: traMADol 50 MG Tab PO SCH ×3 (11:23→22:54)
[2018-10-13] MEDS: Pantoprazole 40 MG Tab.CR PO SCH (11:29)
--- NOTE | 2018-10-13 16:25 | PCM.SURGPN ---
- General Info Date of Service: 10/13/18 Date of Surgery/Procedure: 10/10/18 POD#: 3 Functional Status: Reports: Pain Controlled (with epidural but will be started on ibuprofen and tramadol as noted in plan), Tolerating Diet (on regular diet) - Review of Systems Systems Review Comment:: Steven is a 52 YO male post op day 3 from a L upper lobe lobectomy for removal of suspicious mass. Pain is well controlled on an epidural. No new pertinent negatives or positives to note that are pertinent. Patient has not had a BM but is passing gas now. - Patient Data Vitals - Most Recent: Last Vital Signs Temp 36.4 C 10/13/18 11:25 Pulse 45 L 10/13/18 11:25 Resp 16 10/13/18 11:25 BP 112/50 L 10/13/18 11:25 Pulse Ox 95 10/13/18 12:55 Weight - Most Recent: 82.1 kg I&O - Last 24 Hours: Intake & Output 10/13/18 10/13/18 10/13/18 06:59 14:59 22:59 Intake Total 2048 940 Output Total 1300 1695 Balance 748 -755 Imaging Impressions - Last 24 Hrs: 1. Good lung markings to all lung dominguez. 2. Subcutaneous air noted. 3. High riding L diaphragm. Lab Results Last 24 Hrs: Laboratory Results - last 24 hr 10/13/18 10/13/18 Range/Units 04:50 04:50 WBC 10.0 (4.5-11.0) K/uL RBC 4.07 L (4.30-5.90) M/uL Hgb 12.3 (12.0-15.0) g/dL Hct 36.2 L (40.0-54.0) % MCV 89 (80-98) fL MCH 30 (27-31) pg MCHC 34 (32-36) % Plt Count 213 (150-400) K/uL Sodium 137 L (140-148) mmol/L Potassium 4.3 (3.6-5.2) mmol/L Chloride 101 (100-108) mmol/L Carbon Dioxide 30 (21-32) mmol/L Anion Gap 10.3 (5.0-14.0) mmol/L BUN 6 L (7-18) mg/dL Creatinine 0.7 L (0.8-1.3) mg/dL Est Cr Clr Drug Dosing 132.60 mL/min Estimated GFR (MDRD) > 60 (>60) Glucose 106 (74-106) mg/dL Calcium 8.0 L (8.5-10.1) mg/dL Phosphorus 2.5 (2.5-4.9) mg/dL Magnesium 2.1 (1.8-2.4) mg/dL Total Bilirubin 0.5 (0.2-1.0) mg/dL AST 35 (15-37) U/L ALT 23 (12-78) U/L Alkaline Phosphatase 47 (46-116) U/L NT-Pro-B Natriuret Pep 1507 H (5-125) pg/mL Total Protein 6.1 L (6.4-8.2) g/dL Albumin 2.8 L (3.4-5.0) g/dL Globulin 3.3 (2.3-3.5) g/dL Albumin/Globulin Ratio 0.9 L (1.2-2.2) Med Orders - Current: Current Medications Acetaminophen (Tylenol Extra Strength) 1,000 mg PO Q6H [facility] Last Admin: 10/13/18 15:19 Dose: Not Given Aripiprazole (Abilify) 15 mg PO DAILY [facility] Last Admin: 10/13/18 08:34 Dose: 15 mg Aspirin (Halfprin) 81 mg PO DAILY [facility] Last Admin: 10/13/18 08:37 Dose: 81 mg Atorvastatin Calcium (Lipitor) 40 mg PO BEDTIME [facility] Last Admin: 10/12/18 20:14 Dose: 40 mg Bisacodyl (Dulcolax) 10 mg PO BID [facility] Last Admin: 10/13/18 08:36 Dose: 10 mg Clopidogrel Bisulfate (Plavix) 75 mg PO DAILY [facility] Last Admin: 10/13/18 08:36 Dose: 75 mg Docusate Sodium (Colace) 100 mg PO BID [facility] Last Admin: 10/13/18 08:36 Dose: 100 mg Escitalopram Oxalate (Lexapro) 20 mg PO DAILY [facility] Last Admin: 10/13/18 08:35 Dose: 20 mg Hydroxyzine HCl (Vistaril) 100 mg IM Q4H PRN PRN Reason: PAIN Fentanyl 2,500 mcg/ Sodium (Chloride) 250 mls @ 0 mls/hr EPIDUR TITRATE [facility]; Protocol Last Admin: 10/13/18 00:26 Dose: 120 mcg/hr, 12 mls/hr Dextrose/Lactated Ringer's (Dextrose 5%-Lactated Ringers) 1,000 mls @ 50 mls/ hr IV ASDIRECTED [facility] Ibuprofen (Motrin) 600 mg PO Q6H [facility] Last Admin: 10/13/18 15:19 Dose: Not Given Lisinopril (Prinivil) 2.5 mg PO DAILY [facility] Last Admin: 10/13/18 08:37 Dose: 2.5 mg Metoprolol Tartrate (Lopressor) 25 mg PO BID [facility] Last Admin: 10/13/18 08:36 Dose: 25 mg Naloxone HCl (Narcan) 0.1 mg IVPUSH Q5M PRN PRN Reason: RESP RATE LESS THAN 6/MINUTE Nicotine (Habitrol) 21 mg TRDERM DAILY [facility] Last Admin: 10/13/18 08:35 Dose: 21 mg Ondansetron HCl (Zofran) 4 mg IVPUSH Q4H PRN PRN Reason: Nausea Pantoprazole Sodium (Protonix) 40 mg PO ACBREAKFAST [facility] Last Admin: 10/13/18 11:29 Dose: 40 mg Ramelteon (Rozerem) 8 mg PO BEDTIME [facility] Last Admin: 10/12/18 20:15 Dose: 8 mg Tramadol HCl (Ultram) 100 mg PO Q6H [facility] Last Admin: 10/13/18 11:23 Dose: 100 mg Discontinued Medications Acetaminophen (Tylenol Extra Strength) 1,000 mg PO ONETIME ONE Stop: 10/10/18 06:46 Last Admin: 10/10/18 06:53 Dose: 1,000 mg Albuterol (Proventil Neb Soln) 2.5 mg NEB ONETIME ONE Stop: 10/10/18 07:32 Last Admin: 10/10/18 07:48 Dose: 2.5 mg Albuterol/Ipratropium (Duoneb 3.0-0.5 Mg/3 Ml) Confirm Administered Dose 3 ml .ROUTE .STK-MED ONE Stop: 10/10/18 07:38 Last Admin: 10/10/18 11:02 Dose: Not Given Bupivacaine HCl/Epinephrine Bitart (Marcaine 0.5%/Epinephrine 1:200,000) Confirm Administered Dose 50 ml .ROUTE .ST-MED ONE Stop: 10/10/18 07:09 Last Admin: 10/10/18 10:18 Dose: 50 ml Dexamethasone (Dexamethasone) Confirm Administered Dose 4 mg .ROUTE .STK-MED ONE Stop: 10/10/18 08:44 Fentanyl (Sublimaze) Confirm Administered Dose 250 mcg .ROUTE .STK-MED ONE Stop: 10/10/18 08:36 Fentanyl (Sublimaze) Confirm Administered Dose 100 mcg .ROUTE .ST-MED ONE Stop: 10/10/18 09:47 Furosemide (Lasix) 10 mg IVPUSH ONETIME ONE Stop: 10/12/18 08:01 Last Admin: 10/12/18 08:29 Dose: 10 mg Furosemide (Lasix) 20 mg IV ONETIME ONE Stop: 10/13/18 08:16 Last Admin: 10/13/18 08:34 Dose: 20 mg Glycopyrrolate (Robinul) Confirm Administered Dose 1 mg .ROUTE .ST-MED ONE Stop: 10/10/18 08:44 Heparin Sodium (Porcine) (Heparin Sodium) Confirm Administered Dose 5,000 units .ROUTE .ST-MED ONE Stop: 10/10/18 08:44 Cefazolin Sodium/Dextrose 2 gm (/ Premix) 50 mls @ 100 mls/hr IV ONETIME ONE Stop: 10/10/18 09:44 Last Admin: 10/10/18 09:45 Dose: 100 mls/hr Dextrose/Lactated Ringer's (Dextrose 5%-Lactated Ringers) 1,000 mls @ 100 mls/ hr IV ASDIRECTED [facility] Last Admin: 10/10/18 07:35 Dose: 100 mls/hr Sodium Chloride (Normal Saline) Confirm Administered Dose 500 mls @ as directed .ROUTE .ST-MED ONE Stop: 10/10/18 08:44 Lidocaine HCl (Xylocaine-Mpf 1%) Confirm Administered Dose 2 mls @ as directed .ROUTE .ST-MED ONE Stop: 10/10/18 08:58 Lactated Ringer's (Ringers, Lactated) Confirm Administered Dose 1,000 mls @ as directed .ROUTE .STK-MED ONE Stop: 10/10/18 09:46 Sodium Chloride (Normal Saline) Confirm Administered Dose 10 mls @ as directed .ROUTE .STK-MED ONE Stop: 10/10/18 09:47 Acetaminophen (Ofirmev) 100 mls @ 400 mls/hr IV Q6H [facility] Stop: 10/10/18 14:14 Last Admin: 10/10/18 13:57 Dose: 400 mls/hr Dextrose/Lactated Ringer's (Dextrose 5%-Lactated Ringers) 1,000 mls @ 175 mls/ hr IV ASDIRECTED [facility] Last Admin: 10/11/18 03:16 Dose: 175 mls/hr Cefazolin Sodium/Dextrose 2 gm (/ Premix) 50 mls @ 100 mls/hr IV Q8H [facility] Stop: 10/13/18 09:29 Last Admin: 10/13/18 08:38 Dose: 100 mls/hr Dextrose/Lactated Ringer's (Dextrose 5%-Lactated Ringers) 1,000 mls @ 100 mls/ hr IV ASDIRECTED [facility] Last Admin: 10/12/18 22:36 Dose: 100 mls/hr Magnesium Sulfate 2 gm/ Premix 50 mls @ 12.5 mls/hr IV Q6H [facility] Stop: 10/13/18 07:59 Last Admin: 10/13/18 03:11 Dose: 12.5 mls/hr Meropenem (Merrem) Confirm Administered Dose 500 mg .ROUTE .STK-MED ONE Stop: 10/10/18 07:09 Last Admin: 10/10/18 10:18 Dose: 500 mg Metoprolol Tartrate (Lopressor) 25 mg PO BID [facility] Last Admin: 10/11/18 09:50 Dose: 25 mg Midazolam HCl (Versed 1 Mg/Ml) Confirm Administered Dose 2 mg .ROUTE .STK-MED ONE Stop: 10/10/18 08:59 Neostigmine Methylsulfate (Neostigmine) Confirm Administered Dose 5 mg .ROUTE .STK-MED ONE Stop: 10/10/18 08:44 Ondansetron HCl (Zofran) Confirm Administered Dose 4 mg .ROUTE .STK-MED ONE Stop: 10/10/18 08:44 Pantoprazole Sodium (Protonix Iv) 40 mg IV Q24H [facility] Last Admin: 10/12/18 16:04 Dose: 40 mg Propofol (Diprivan 20 Ml) Confirm Administered Dose 200 mg .ROUTE .STK-MED ONE Stop: 10/10/18 08:44 Rocuronium [place] (Zemuron) Confirm Administered Dose 50 mg .ROUTE .STK-MED ONE Stop: 10/10/18 08:44 Rocuronium [place] (Zemuron) Confirm Administered Dose 50 mg .ROUTE .STK-MED ONE Stop: 10/10/18 10:38 Succinylcholine Chloride (Quelicin) Confirm Administered Dose 200 mg .ROUTE .STK -MED ONE Stop: 10/10/18 08:44 - Exam Quality Assessment: Urine Catheter (output in Pham of 4960 mL) General: Alert, Oriented HEENT: Pupils Equal, Pupils Reactive Neck: Supple Lungs: Clear to Auscultation, Normal Respiratory Effort Cardiovascular: Regular Rate, Regular Rhythm Extremities: No Pedal Edema Neurological: No New Focal Deficit Psy/Mental Status: Normal Affect, Normal Mood - Problem List & Annotations (1) Status post lobectomy of lung SNOMED Code(s): 04757982337422546, [id number], [id number] Code(s): Z90.2 - ACQUIRED ABSENCE OF LUNG [PART OF] Status: Acute Priority: Medium Current Visit: Yes Annotation/Comment:: amor glaserf mass with mediastinal lymph node dissection - Problem List Review Problem List Initiated/Reviewed/Updated: Yes - My Orders Last 24 Hours: Active Orders 24 hr Category Date Time Status Communication Order [RC] DAILY Care 10/13/18 06:29 Active Communication Order [RC] DAILY Care 10/13/18 06:36 Active Chest 1V Frontal [CR] DAILY Exams 10/14/18 04:00 Ordered Chest 1V Frontal [CR] DAILY Exams 10/15/18 04:00 Ordered CBC W/O DIFF,HEMOGRAM [HEME] Timed Lab 10/14/18 04:00 Ordered COMPREHENSIVE METABOLIC PN,CMP [CHEM] Timed Lab 10/14/18 04:00 Ordered MAGNESIUM [CHEM] Timed Lab 10/14/18 04:00 Ordered PHOSPHORUS [CHEM] Timed Lab 10/14/18 04:00 Ordered Dextrose 5%-Lactated Ringers 1,000 ml Med 10/13/18 07:45 Active IV ASDIRECTED Ibuprofen [Motrin] Med 10/13/18 08:00 Active 600 mg PO Q6H Pantoprazole [ProTONIX] Med 10/13/18 11:00 Active 40 mg PO ACBREAKFAST traMADol [Ultram] Med 10/13/18 10:00 Active 100 mg PO Q6H Medication Orders Acetaminophen (Tylenol Extra Strength) 1,000 mg PO Q6H [facility] Last Admin: 10/13/18 15:19 Dose: Not Given Admin: 10/13/18 08:36 Dose: 1,000 mg Admin: 10/13/18 01:27 Dose: 1,000 mg Admin: 10/12/18 20:13 Dose: 1,000 mg Admin: 10/12/18 14:52 Dose: 1,000 mg Admin: 10/12/18 08:34 Dose: 1,000 mg Admin: 10/12/18 01:11 Dose: 1,000 mg Admin: 10/11/18 20:15 Dose: 1,000 mg Admin: 10/11/18 13:20 Dose: 1,000 mg Admin: 10/11/18 09:08 Dose: 1,000 mg Admin: 10/11/18 01:29 Dose: 1,000 mg Admin: 10/10/18 20:51 Dose: 1,000 mg Aripiprazole (Abilify) 15 mg PO DAILY [facility] Last Admin: 10/13/18 08:34 Dose: 15 mg Admin: 10/12/18 08:35 Dose: 15 mg Admin: 10/11/18 09:10 Dose: 15 mg Aspirin (Halfprin) 81 mg PO DAILY [facility] Last Admin: 10/13/18 08:37 Dose: 81 mg Admin: 10/12/18 08:37 Dose: 81 mg Admin: 10/11/18 09:09 Dose: 81 mg Atorvastatin Calcium (Lipitor) 40 mg PO BEDTIME [facility] Last Admin: 10/12/18 20:14 Dose: 40 mg Admin: 10/11/18 20:16 Dose: 40 mg Admin: 10/10/18 20:51 Dose: 40 mg Bisacodyl (Dulcolax) 10 mg PO BID [facility] Last Admin: 10/13/18 08:36 Dose: 10 mg Admin: 10/12/18 20:13 Dose: 10 mg Admin: 10/12/18 08:35 Dose: 10 mg Clopidogrel Bisulfate (Plavix) 75 mg PO DAILY [facility] Last Admin: 10/13/18 08:36 Dose: 75 mg Admin: 10/12/18 08:38 Dose: 75 mg Docusate Sodium (Colace) 100 mg PO BID [facility] Last Admin: 10/13/18 08:36 Dose: 100 mg Admin: 10/12/18 20:13 Dose: 100 mg Admin: 10/12/18 08:36 Dose: 100 mg Admin: 10/11/18 20:15 Dose: 100 mg Admin: 10/11/18 09:09 Dose: 100 mg Escitalopram Oxalate (Lexapro) 20 mg PO DAILY [facility] Last Admin: 10/13/18 08:35 Dose: 20 mg Admin: 10/12/18 08:37 Dose: 20 mg Admin: 10/11/18 09:09 Dose: 20 mg Hydroxyzine HCl (Vistaril) 100 mg IM Q4H PRN PRN Reason: PAIN Fentanyl 2,500 mcg/ Sodium (Chloride) 250 mls @ 0 mls/hr EPIDUR TITRATE [facility]; Protocol Last Admin: 10/13/18 00:26 Dose: 120 mcg/hr, 12 mls/hr Titration: 10/13/18 00:26 Dose: 120 mcg/hr, 12 mls/hr Admin: 10/12/18 03:40 Dose: 120 mcg/hr, 12 mls/hr Titration: 10/12/18 03:40 Dose: 120 mcg/hr, 12 mls/hr Admin: 10/11/18 07:19 Dose: 120 mcg/hr, 12 mls/hr Titration: 10/11/18 07:19 Dose: 120 mcg/hr, 12 mls/hr Admin: 10/10/18 14:49 Dose: 120 mcg/hr, 12 mls/hr Dextrose/Lactated Ringer's (Dextrose 5%-Lactated Ringers) 1,000 mls @ 50 mls/ hr IV ASDIRECTED [facility] Ibuprofen (Motrin) 600 mg PO Q6H [facility] Last Admin: 10/13/18 15:19 Dose: Not Given Admin: 10/13/18 08:35 Dose: 600 mg Lisinopril (Prinivil) 2.5 mg PO DAILY [facility] Last Admin: 10/13/18 08:37 Dose: 2.5 mg Admin: 10/12/18 08:39 Dose: 2.5 mg Admin: 10/11/18 09:45 Dose: Not Given Metoprolol Tartrate (Lopressor) 25 mg PO BID [facility] Last Admin: 10/13/18 08:36 Dose: 25 mg Admin: 10/12/18 20:15 Dose: 25 mg Admin: 10/12/18 08:38 Dose: 25 mg Naloxone HCl (Narcan) 0.1 mg IVPUSH Q5M PRN PRN Reason: RESP RATE LESS THAN 6/MINUTE Nicotine (Habitrol) 21 mg TRDERM DAILY [facility] Last Admin: 10/13/18 08:35 Dose: 21 mg Admin: 10/12/18 08:36 Dose: 21 mg Admin: 10/11/18 09:11 Dose: 21 mg Admin: 10/10/18 17:54 Dose: 21 mg Ondansetron HCl (Zofran) 4 mg IVPUSH Q4H PRN PRN Reason: Nausea Pantoprazole Sodium (Protonix) 40 mg PO ACBREAKFAST [facility] Last Admin: 10/13/18 11:29 Dose: 40 mg Ramelteon (Rozerem) 8 mg PO BEDTIME [facility] Last Admin: 10/12/18 20:15 Dose: 8 mg Admin: 10/11/18 20:16 Dose: 8 mg Admin: 10/10/18 20:51 Dose: 8 mg Tramadol HCl (Ultram) 100 mg PO Q6H [facility] Last Admin: 10/13/18 11:23 Dose: 100 mg - Assessment Assessment (Free Text/Narrative):: Assessment: Post Operative Progress Notes: Assistants: Hanny Steele PA-C and JARVIS Bryan Operation/Findings: L thoracotomy with 1) ANGIE lobectomy and 2) medistinal lymph node dissection Wound Classification: II Complications: No Estimated Blood Loss: about 100 u Date of Surgery: 10/10/2018 Surgeon: Joseph Francisco MD - Plan Plan (Free Text/Narrative):: 1. BNP continued to increase, Lasix IV push of 10 mg and 20 mg one time each. 2. For pain, tramadol 100 mg PO every 6 hours for pain and ibuprofen 600 mg PO every 6 hours. 3. Epidural will be discontinued tomorrow. 4. Has not had a BM but is passing gas. Continue docusate 100 mg PO BID until BM. 5. Chest tube output is 550 mL, it is fluctuating, but there is still bubbles indicating an air leak. A water plug is in place. 6. Chest x-ray has good lung markings to all lung dominguez, subcutaneous air noted , and a high riding L diaphragm due to ANGIE lobectomy. 7. CBC, CMP, magnesium, phosphate in the AM
[2018-10-13] MEDS ORDERED: Morphine PF 150 MG/30 ML PCA Syringe IV PRN ×2 (16:42→17:01)
[2018-10-13] MEDS ORDERED: Naloxone 0.4 MG/ML SDV IVPUSH PRN ×2 (16:42→17:01)
[2018-10-13] MEDS: atorvaSTATin 20 MG Tab PO SCH (20:04)
[2018-10-13] MEDS ORDERED: Albuterol/Ipratropium 3.0-0.5 MG/3 ML Neb Soln NEB PRN (22:16)
[2018-10-13] MEDS ORDERED: Furosemide 20 MG/2 ML VIAL IVPUSH ONE (22:16)
[2018-10-14] MEDS: Acetaminophen 500 MG Tab PO SCH ×4 (02:50→20:30)
[2018-10-14] MEDS: Ibuprofen 600 MG Tab PO SCH ×4 (02:51→20:30)
[2018-10-14] MEDS: traMADol 50 MG Tab PO SCH ×4 (03:01→22:23)
--- NOTE | 2018-10-14 03:40 | CRLCR ---
HISTORY: Follow-up chest tube. Status post lung resection. COMPARISON: From yesterday FINDINGS: A portable erect AP view of the chest was obtained at 0258 hours. There continues to be satisfactory positioning of 2 left-sided chest tubes with no sign of pneumothorax. The previously seen moderate subcutaneous emphysema along the entire lateral left chest and extending into the left neck remains stable. Again seen are changes of left upper lobectomy with surgical clips in the left upper hilum and mild shift of the mediastinum towards the left. The lungs are otherwise clear. The heart remains normal in size. The mediastinum is normal in appearance. The osseous structures are normal in appearance for the patient`s age. IMPRESSION: Stable satisfactory appearance of left upper lobectomy with satisfactory positioning of 2 left-sided chest tube with no sign of pneumothorax. Stable moderate left subcutaneous emphysema extending into the base of the neck on the left. Dictated by Ry Blankenship MD @ Oct 14 2018 3:37AM Signed by Dr. Ry Blankenship @ Oct 14 2018 3:39AM
[2018-10-14] MEDS: Nicotine 21 MG/24 Hr Patch TRDERM SCH (08:32)
[2018-10-14] MEDS: Lisinopril 2.5 MG Tab PO SCH (08:33)
[2018-10-14] MEDS: Docusate Sodium 100 MG Cap PO SCH ×2 (08:35→20:30)
[2018-10-14] MEDS: Clopidogrel 75 MG Tab PO SCH (08:35)
[2018-10-14] MEDS: Bisacodyl 5 MG Tab PO SCH ×2 (08:35→20:31)
[2018-10-14] MEDS: Pantoprazole 40 MG Tab.CR PO SCH (08:35)
[2018-10-14] MEDS: Escitalopram 20 MG Tab PO SCH (08:35)
[2018-10-14] MEDS: ARIPiprazole 10 MG Tab PO SCH (08:35)
[2018-10-14] MEDS: Aspirin 81 MG Tab.EC PO SCH (08:35)
[2018-10-14] MEDS: Dextrose 5%-Lactated Ringers 1,000 ML IV SCH (09:35)
[2018-10-14] MEDS: Metoprolol Tartrate 25 MG Tab PO SCH ×2 (10:02→20:30)
--- NOTE | 2018-10-14 13:18 | PCM.SURGPN ---
- General Info Date of Service: 10/14/18 Date of Surgery/Procedure: 10/10/18 POD#: 4 Functional Status: Reports: Pain Controlled (Epidural was DC. Morphine via LEAD TECHNICAL ARCHITECT and scheduled ibuprofen and Tramadol PO keep pain rated at 3/10.), Tolerating Diet - Review of Systems Systems Review Comment:: 52 YO male Steven Jett is post op day 4 from a L thoracotomy with 1) ANGIE lobectomy and 2) mediastinal lymph node dissection. The patient had a chest tube placed during surgery which continues to have an air leak that is being addressed with a water seal. The fluid is fluctuating and 200 mL were collected through the night. The chest x-ray continues to show good lung markings in all lung dominguez, a high riding left diaphragm, and subcutaneous air. The epidural was DC yesterday. The patient's pain is controlled with morphine via LEAD TECHNICAL ARCHITECT and required 7 mg. Also scheduled ibuprofen PO 600 mg every 6 hours and tramadol PO 100 mg every 6 hours. These treatments keep his pain rated 3/10. The IV is running at 50 but can be switched to TKO. Pham catheter should be DC today. The patient has had a few persistent episodes of bradycardia and should be monitored with telemetry. Patient has no questions or concerns at this time. - Patient Data Vitals - Most Recent: Last Vital Signs Temp 36.2 C 10/14/18 11:00 Pulse 45 L 10/14/18 11:00 Resp 17 10/14/18 11:00 BP 133/71 10/14/18 11:00 Pulse Ox 98 10/14/18 11:00 Weight - Most Recent: 82.1 kg I&O - Last 24 Hours: Intake & Output 10/13/18 10/14/18 10/14/18 22:59 06:59 14:59 Intake Total 330 2061 960 Output Total 900 4805 175 Balance -570 [phone] Imaging Impressions - Last 24 Hrs: Chest x-ray shows good lungs markings to all lung dominguez, a high riding left diaphragm, and subcutaneous air. All normal findings considering post operative status. Lab Results Last 24 Hrs: Laboratory Results - last 24 hr 10/10/18 10/14/18 10/14/18 Range/Units 07:00 04:20 04:20 WBC 7.9 (4.5-11.0) K/uL RBC 4.56 (4.30-5.90) M/uL Hgb 13.6 (12.0-15.0) g/dL Hct 40.2 (40.0-54.0) % MCV 88 (80-98) fL MCH 30 (27-31) pg MCHC 34 (32-36) % Plt Count 255 (150-400) K/uL Sodium 138 L (140-148) mmol/L Potassium 4.5 (3.6-5.2) mmol/L Chloride 101 (100-108) mmol/L Carbon Dioxide 32 (21-32) mmol/L Anion Gap 9.5 (5.0-14.0) mmol/L BUN 10 D (7-18) mg/dL Creatinine 0.8 (0.8-1.3) mg/dL Est Cr Clr Drug Dosing 116.02 mL/min Estimated GFR (MDRD) > 60 (>60) Glucose 113 H (74-106) mg/dL Calcium 8.8 (8.5-10.1) mg/dL Phosphorus 4.0 (2.5-4.9) mg/dL Magnesium 1.6 L (1.8-2.4) mg/dL Total Bilirubin 0.7 (0.2-1.0) mg/dL AST 33 (15-37) U/L ALT 25 (12-78) U/L Alkaline Phosphatase 55 (46-116) U/L Total Protein 6.9 (6.4-8.2) g/dL Albumin 3.1 L (3.4-5.0) g/dL Globulin 3.8 H (2.3-3.5) g/dL Albumin/Globulin Ratio 0.8 L (1.2-2.2) Crossmatch See Detail Med Orders - Current: Current Medications Acetaminophen (Tylenol Extra Strength) 1,000 mg PO Q6H [facility] Last Admin: 10/14/18 08:35 Dose: 1,000 mg Albuterol/Ipratropium (Duoneb 3.0-0.5 Mg/3 Ml) 3 ml NEB Q6H PRN PRN Reason: Shortness of Breath Last Admin: 10/13/18 22:29 Dose: 3 ml Aripiprazole (Abilify) 15 mg PO DAILY [facility] Last Admin: 10/14/18 08:35 Dose: 15 mg Aspirin (Halfprin) 81 mg PO DAILY [facility] Last Admin: 10/14/18 08:35 Dose: 81 mg Atorvastatin Calcium (Lipitor) 40 mg PO BEDTIME [facility] Last Admin: 10/13/18 20:04 Dose: 40 mg Bisacodyl (Dulcolax) 10 mg PO BID [facility] Last Admin: 10/14/18 08:35 Dose: 10 mg Clopidogrel Bisulfate (Plavix) 75 mg PO DAILY [facility] Last Admin: 10/14/18 08:35 Dose: 75 mg Docusate Sodium (Colace) 100 mg PO BID [facility] Last Admin: 10/14/18 08:35 Dose: 100 mg Escitalopram Oxalate (Lexapro) 20 mg PO DAILY [facility] Last Admin: 10/14/18 08:35 Dose: 20 mg Hydroxyzine HCl (Vistaril) 100 mg IM Q4H PRN PRN Reason: PAIN Dextrose/Lactated Ringer's (Dextrose 5%-Lactated Ringers) 1,000 mls @ 50 mls/ hr IV ASDIRECTED [facility] Last Admin: 10/14/18 09:35 Dose: 50 mls/hr Ibuprofen (Motrin) 600 mg PO Q6H [facility] Last Admin: 10/14/18 08:33 Dose: 600 mg Lisinopril (Prinivil) 2.5 mg PO DAILY [facility] Last Admin: 10/14/18 08:33 Dose: 2.5 mg Metoprolol Tartrate (Lopressor) 25 mg PO BID [facility] Last Admin: 10/14/18 10:02 Dose: 25 mg Morphine Sulfate (Morphine [employer] 150 Mg In 30 Ml) 0 mg IV ASDIRECTED PRN; Protocol PRN Reason: Pain Last Admin: 10/13/18 17:21 Dose: 150 mg Naloxone HCl (Narcan) 0.1 mg IVPUSH Q2M PRN PRN Reason: Respiratory Distress Nicotine (Habitrol) 21 mg TRDERM DAILY [facility] Last Admin: 10/14/18 08:32 Dose: 21 mg Ondansetron HCl (Zofran) 4 mg IVPUSH Q4H PRN PRN Reason: Nausea Pantoprazole Sodium (Protonix) 40 mg PO ACBREAKFAST [facility] Last Admin: 10/14/18 08:35 Dose: 40 mg Ramelteon (Rozerem) 8 mg PO BEDTIME [facility] Last Admin: 10/13/18 20:05 Dose: 8 mg Tramadol HCl (Ultram) 100 mg PO Q6H [facility] Last Admin: 10/14/18 09:41 Dose: 100 mg Discontinued Medications Acetaminophen (Tylenol Extra Strength) 1,000 mg PO ONETIME ONE Stop: 10/10/18 06:46 Last Admin: 10/10/18 06:53 Dose: 1,000 mg Albuterol (Proventil Neb Soln) 2.5 mg NEB ONETIME ONE Stop: 10/10/18 07:32 Last Admin: 10/10/18 07:48 Dose: 2.5 mg Albuterol/Ipratropium (Duoneb 3.0-0.5 Mg/3 Ml) Confirm Administered Dose 3 ml .ROUTE .STK-MED ONE Stop: 10/10/18 07:38 Last Admin: 10/10/18 11:02 Dose: Not Given Bupivacaine HCl/Epinephrine Bitart (Marcaine 0.5%/Epinephrine 1:200,000) Confirm Administered Dose 50 ml .ROUTE .STK-MED ONE Stop: 10/10/18 07:09 Last Admin: 10/10/18 10:18 Dose: 50 ml Dexamethasone (Dexamethasone) Confirm Administered Dose 4 mg .ROUTE .STK-MED ONE Stop: 10/10/18 08:44 Fentanyl (Sublimaze) Confirm Administered Dose 250 mcg .ROUTE .STK-MED ONE Stop: 10/10/18 08:36 Fentanyl (Sublimaze) Confirm Administered Dose 100 mcg .ROUTE .STK-MED ONE Stop: 10/10/18 09:47 Furosemide (Lasix) 10 mg IVPUSH ONETIME ONE Stop: 10/12/18 08:01 Last Admin: 10/12/18 08:29 Dose: 10 mg Furosemide (Lasix) 20 mg IV ONETIME ONE Stop: 10/13/18 08:16 Last Admin: 10/13/18 08:34 Dose: 20 mg Furosemide (Lasix) 20 mg IVPUSH ONETIME ONE Stop: 10/13/18 22:17 Last Admin: 10/13/18 22:28 Dose: 20 mg Glycopyrrolate (Robinul) Confirm Administered Dose 1 mg .ROUTE .STK-MED ONE Stop: 10/10/18 08:44 Heparin Sodium (Porcine) (Heparin Sodium) Confirm Administered Dose 5,000 units .ROUTE .STK-MED ONE Stop: 10/10/18 08:44 Cefazolin Sodium/Dextrose 2 gm (/ Premix) 50 mls @ 100 mls/hr IV ONETIME ONE Stop: 10/10/18 09:44 Last Admin: 10/10/18 09:45 Dose: 100 mls/hr Dextrose/Lactated Ringer's (Dextrose 5%-Lactated Ringers) 1,000 mls @ 100 mls/ hr IV ASDIRECTED [facility] Last Admin: 10/10/18 07:35 Dose: 100 mls/hr Fentanyl 2,500 mcg/ Sodium (Chloride) 250 mls @ 0 mls/hr EPIDUR TITRATE [facility]; Protocol Last Admin: 10/13/18 00:26 Dose: 120 mcg/hr, 12 mls/hr Sodium Chloride (Normal Saline) Confirm Administered Dose 500 mls @ as directed .ROUTE .[facility]-MED ONE Stop: 10/10/18 08:44 Lidocaine HCl (Xylocaine-Mpf 1%) Confirm Administered Dose 2 mls @ as directed .ROUTE .[facility] ONE Stop: 10/10/18 08:58 Lactated Ringer's (Ringers, Lactated) Confirm Administered Dose 1,000 mls @ as directed .ROUTE .[facility]-MED ONE Stop: 10/10/18 09:46 Sodium Chloride (Normal Saline) Confirm Administered D[facility] 10 mls @ [facility] Stop: 10/10/18 09:47 Acetaminophen (Ofirmev) 100 mls @ 400 mls/hr IV Q6H [facility] Stop: 10/10/18 14:14 Last Admin: 10/10/18 13:57 Dose: 400 mls/hr Dextrose/Lactated Ringer's (Dextrose 5%-Lactated Ringers) 1,000 mls @ 175 mls/ hr IV ASDIRECTED [facility] Last Admin: 10/11/18 03:16 Dose: 175 mls/hr Cefazolin Sodium/Dextrose 2 gm (/ Premix) 50 mls @ 100 mls/hr IV Q8H [facility] Stop: 10/13/18 09:29 Last Admin: 10/13/18 08:38 Dose: 100 mls/hr Dextrose/Lactated Ringer's (Dextrose 5%-Lactated Ringers) 1,000 mls @ 100 mls/ hr IV ASDIRECTED [facility] Last Admin: 10/12/18 22:36 Dose: 100 mls/hr Magnesium Sulfate 2 gm/ Premix 50 mls @ 12.5 mls/hr IV Q6H [facility] Stop: 10/13/18 07:59 Last Admin: 10/13/18 03:11 Dose: 12.5 mls/hr Meropenem (Merrem) Confirm Administered Dose 500 mg .ROUTE .STK-MED ONE Stop: 10/10/18 07:09 Last Admin: 10/10/18 10:18 Dose: 500 mg Metoprolol Tartrate (Lopressor) 25 mg PO BID [facility] Last Admin: 10/11/18 09:50 Dose: 25 mg Midazolam HCl (Versed 1 Mg/Ml) Confirm Administered Dose 2 mg .ROUTE .STK-MED ONE Stop: 10/10/18 08:59 Naloxone HCl (Narcan) 0.1 mg IVPUSH Q5M PRN PRN Reason: RESP RATE LESS THAN 6/MINUTE Neostigmine Methylsulfate (Neostigmine) Confirm Administered Dose 5 mg .ROUTE .STK-MED ONE Stop: 10/10/18 08:44 Ondansetron HCl (Zofran) Confirm Administered Dose 4 mg .ROUTE .STK-MED ONE Stop: 10/10/18 08:44 Pantoprazole Sodium (Protonix Iv) 40 mg IV Q24H [facility] Last Admin: 10/12/18 16:04 Dose: 40 mg Propofol (Diprivan 20 Ml) Confirm Administered Dose 200 mg .ROUTE .STK-MED ONE Stop: 10/10/18 08:44 Rocuronium [place] (Zemuron) Confirm Administered Dose 50 mg .ROUTE .STK-MED ONE Stop: 10/10/18 08:44 Rocuronium [place] (Zemuron) Confirm Administered Dose 50 mg .ROUTE .STK-MED ONE Stop: 10/10/18 10:38 Succinylcholine Chloride (Quelicin) Confirm Administered Dose 200 mg .ROUTE .STK -MED ONE Stop: 10/10/18 08:44 - Exam Wound/Incisions: Dressing Dry and Intact Quality Assessment: Supplemental Oxygen (2 L via NC), Urine Catheter (should be DC today) General: Alert, Oriented Neck: Supple Lungs: Clear to Auscultation, Normal Respiratory Effort Cardiovascular: Regular Rate, Regular Rhythm Extremities: No Pedal Edema, Normal Capillary Refill Skin: Other (Skin on left side of neck and chest is crackling due to subcutaneous emphysema noted on chest x-ray) Neurological: No New Focal Deficit Psy/Mental Status: Normal Affect, Normal Mood - Problem List & Annotations (1) Status post lobectomy of lung SNOMED Code(s): 50987673085621241, 446091507, [id number] Code(s): Z90.2 - ACQUIRED ABSENCE OF LUNG [PART OF] Status: Acute Priority: Medium Current Visit: Yes Annotation/Comment:: amor lunf mass with mediastinal lymph node dissection - Problem List Review Problem List Initiated/Reviewed/Updated: Yes - My Orders Last 24 Hours: Active Orders 24 hr Category Date Time Status Cardiac Monitoring [RC] .As Directed Care 10/14/18 08:06 Inactive Communication Order [RC] STAT Care 10/13/18 16:43 Active Communication Order [RC] STAT Care 10/13/18 17:01 Active DC Pham Catheter [Urinary Catheter Removal] [RC] Per Care 10/14/18 07:41 Active Unit Routine Notify Provider [RC] PRN Care 10/13/18 16:43 Active LEAD TECHNICAL ARCHITECT Record [RC] PER UNIT ROUTINE Care 10/13/18 17:01 Active RT Aerosol Therapy [RC] ASDIRECTED Care 10/13/18 22:17 Active Chest 1V Frontal [CR] DAILY Exams 10/15/18 04:00 Ordered Albuterol/Ipratropium [DuoNeb 3.0-0.5 MG/3 ML] Med 10/13/18 22:16 Active 3 ml NEB Q6H PRN Morphine PF [Morphine LEAD TECHNICAL ARCHITECT 150 MG in 30 ML] Med 10/13/18 17:01 Active See Protocol IV ASDIRECTED PRN Naloxone [Narcan] Med 10/13/18 17:01 Active 0.1 mg IVPUSH Q2M PRN Medication Discontinuation Instructions [OM.PC] Stat Oth 10/13/18 16:43 Ordered Medication Discontinuation Instructions [OM.PC] Stat Oth 10/13/18 17:01 Ordered RT Acapella [RESPCARE] Routine Oth 10/13/18 22:15 Active Medication Orders Acetaminophen (Tylenol Extra Strength) 1,000 mg PO Q6H [facility] Last Admin: 10/14/18 08:35 Dose: 1,000 mg Admin: 10/14/18 02:50 Dose: 1,000 mg Admin: 10/13/18 20:01 Dose: 1,000 mg Admin: 10/13/18 15:19 Dose: Not Given Admin: 10/13/18 08:36 Dose: 1,000 mg Admin: 10/13/18 01:27 Dose: 1,000 mg Admin: 10/12/18 20:13 Dose: 1,000 mg Admin: 10/12/18 14:52 Dose: 1,000 mg Admin: 10/12/18 08:34 Dose: 1,000 mg Admin: 10/12/18 01:11 Dose: 1,000 mg Admin: 10/11/18 20:15 Dose: 1,000 mg Admin: 10/11/18 13:20 Dose: 1,000 mg Admin: 10/11/18 09:08 Dose: 1,000 mg Admin: 10/11/18 01:29 Dose: 1,000 mg Admin: 10/10/18 20:51 Dose: 1,000 mg Albuterol/Ipratropium (Duoneb 3.0-0.5 Mg/3 Ml) 3 ml NEB Q6H PRN PRN Reason: Shortness of Breath Last Admin: 10/13/18 22:29 Dose: 3 ml Aripiprazole (Abilify) 15 mg PO DAILY [facility] Last Admin: 10/14/18 08:35 Dose: 15 mg Admin: 10/13/18 08:34 Dose: 15 mg Admin: 10/12/18 08:35 Dose: 15 mg Admin: 10/11/18 09:10 Dose: 15 mg Aspirin (Halfprin) 81 mg PO DAILY [facility] Last Admin: 10/14/18 08:35 Dose: 81 mg Admin: 10/13/18 08:37 Dose: 81 mg Admin: 10/12/18 08:37 Dose: 81 mg Admin: 10/11/18 09:09 Dose: 81 mg Atorvastatin Calcium (Lipitor) 40 mg PO BEDTIME [facility] Last Admin: 10/13/18 20:04 Dose: 40 mg Admin: 10/12/18 20:14 Dose: 40 mg Admin: 10/11/18 20:16 Dose: 40 mg Admin: 10/10/18 20:51 Dose: 40 mg Bisacodyl (Dulcolax) 10 mg PO BID [facility] Last Admin: 10/14/18 08:35 Dose: 10 mg Admin: 10/13/18 20:03 Dose: 10 mg Admin: 10/13/18 08:36 Dose: 10 mg Admin: 10/12/18 20:13 Dose: 10 mg Admin: 10/12/18 08:35 Dose: 10 mg Clopidogrel Bisulfate (Plavix) 75 mg PO DAILY [facility] Last Admin: 10/14/18 08:35 Dose: 75 mg Admin: 10/13/18 08:36 Dose: 75 mg Admin: 10/12/18 08:38 Dose: 75 mg Docusate Sodium (Colace) 100 mg PO BID [facility] Last Admin: 10/14/18 08:35 Dose: 100 mg Admin: 10/13/18 20:03 Dose: 100 mg Admin: 10/13/18 08:36 Dose: 100 mg Admin: 10/12/18 20:13 Dose: 100 mg Admin: 10/12/18 08:36 Dose: 100 mg Admin: 10/11/18 20:15 Dose: 100 mg Admin: 10/11/18 09:09 Dose: 100 mg Escitalopram Oxalate (Lexapro) 20 mg PO DAILY [facility] Last Admin: 10/14/18 08:35 Dose: 20 mg Admin: 10/13/18 08:35 Dose: 20 mg Admin: 10/12/18 08:37 Dose: 20 mg Admin: 10/11/18 09:09 Dose: 20 mg Hydroxyzine HCl (Vistaril) 100 mg IM Q4H PRN PRN Reason: PAIN Dextrose/Lactated Ringer's (Dextrose 5%-Lactated Ringers) 1,000 mls @ 50 mls/ hr IV ASDIRECTED [facility] Last Admin: 10/14/18 09:35 Dose: 50 mls/hr Ibuprofen (Motrin) 600 mg PO Q6H [facility] Last Admin: 10/14/18 08:33 Dose: 600 mg Admin: 10/14/18 02:51 Dose: 600 mg Admin: 10/13/18 20:02 Dose: 600 mg Admin: 10/13/18 15:19 Dose: Not Given Admin: 10/13/18 08:35 Dose: 600 mg Lisinopril (Prinivil) 2.5 mg PO DAILY [facility] Last Admin: 10/14/18 08:33 Dose: 2.5 mg Admin: 10/13/18 08:37 Dose: 2.5 mg Admin: 10/12/18 08:39 Dose: 2.5 mg Admin: 10/11/18 09:45 Dose: Not Given Metoprolol Tartrate (Lopressor) 25 mg PO BID [facility] Last Admin: 10/14/18 10:02 Dose: 25 mg Admin: 10/13/18 20:04 Dose: 25 mg Admin: 10/13/18 08:36 Dose: 25 mg Admin: 10/12/18 20:15 Dose: 25 mg Admin: 10/12/18 08:38 Dose: 25 mg Morphine Sulfate (Morphine [employer] 150 Mg In 30 Ml) 0 mg IV ASDIRECTED PRN; Protocol PRN Reason: Pain Last Admin: 10/13/18 17:21 Dose: 150 mg Naloxone HCl (Narcan) 0.1 mg IVPUSH Q2M PRN PRN Reason: Respiratory Distress Nicotine (Habitrol) 21 mg TRDERM DAILY [facility] Last Admin: 10/14/18 08:32 Dose: 21 mg Admin: 10/13/18 08:35 Dose: 21 mg Admin: 10/12/18 08:36 Dose: 21 mg Admin: 10/11/18 09:11 Dose: 21 mg Admin: 10/10/18 17:54 Dose: 21 mg Ondansetron HCl (Zofran) 4 mg IVPUSH Q4H PRN PRN Reason: Nausea Pantoprazole Sodium (Protonix) 40 mg PO ACBREAKFAST [facility] Last Admin: 10/14/18 08:35 Dose: 40 mg Admin: 10/13/18 11:29 Dose: 40 mg Ramelteon (Rozerem) 8 mg PO BEDTIME [facility] Last Admin: 10/13/18 20:05 Dose: 8 mg Admin: 10/12/18 20:15 Dose: 8 mg Admin: 10/11/18 20:16 Dose: 8 mg Admin: 10/10/18 20:51 Dose: 8 mg Tramadol HCl (Ultram) 100 mg PO Q6H [facility] Last Admin: 10/14/18 09:41 Dose: 100 mg Admin: 10/14/18 03:01 Dose: 100 mg Admin: 10/13/18 22:54 Dose: 100 mg Admin: 10/13/18 18:25 Dose: 100 mg Admin: 10/13/18 11:23 Dose: 100 mg - Assessment Assessment (Free Text/Narrative):: Assessment: Post Operative Progress Notes: Assistants: Hanny Steele PA-C and JARVIS Bryan Operation/Findings: L thoracotomy with 1) ANGIE lobectomy and 2) mediastinal lymph node dissection Wound Classification: II Complications: No Estimated Blood Loss: about 100 u Date of Surgery: 10/10/2018 Surgeon: Joseph Francisco MD - Plan Plan (Free Text/Narrative):: 1. Keep morphine as LEAD TECHNICAL ARCHITECT. 2. Continue scheduled ibuprofen and tramadol for pain. 3. Change IV from 50 to TKO. 4. DC Pham catheter. 5. Bradycardia has started and this should be monitored with telemetry. 6. The chest tube still has an air leak and this is being addressed with a water seal. The tube is fluctuating still, had 200 mL of fluid overnight, and the chest x-ray still notes subcutaneous air, high riding left diaphragm, and good lung markings to all lung dominguez.
[2018-10-14] MEDS: atorvaSTATin 20 MG Tab PO SCH (20:31)
[2018-10-15] MEDS: Ibuprofen 600 MG Tab PO SCH ×4 (02:25→19:46)
[2018-10-15] MEDS: Acetaminophen 500 MG Tab PO SCH ×4 (02:25→19:46)
[2018-10-15] MEDS: traMADol 50 MG Tab PO SCH ×4 (04:00→23:00)
--- NOTE | 2018-10-15 05:04 | CRLCR ---
HISTORY: Follow up chest tubes COMPARISON: From yesterday FINDINGS: A portable erect AP view of the chest was obtained at 0430 hours. Again seen are the 2 left-sided chest tubes with no sign of pneumothorax. There has been a decrease in the left subcutaneous emphysema, especially along the inferior portion of the chest. There continues to be moderate subcutaneous emphysema in the superior chest wall extending into the base of the neck. Again seen are changes of left upper lobectomy with surgical clips in the left superior hilum and moderate shift of the mediastinum to the left. The lungs otherwise remain clear. The heart remains normal in size. The mediastinum is normal in appearance. The osseous structures are normal in appearance for the patient`s age. IMPRESSION: Stable satisfactory positioning of 2 left-sided chest tubes with no sign of pneumothorax. Decrease in moderate left subcutaneous chest wall edema in the lower chest. Stable changes of left upper lobectomy. Dictated by Ry Blankenship MD @ Oct 15 2018 4:59AM Signed by Dr. Ry Blankenship @ Oct 15 2018 5:02AM
[2018-10-15] MEDS: Pantoprazole 40 MG Tab.CR PO SCH (07:16)
--- NOTE | 2018-10-15 07:30 | PCM.SURGPN ---
- General Info Date of Service: 10/15/18 Date of Surgery/Procedure: 10/10/18 POD#: 5 Post-Op Diagnosis: L thoracotomy with 1) ANGIE lobectomy and 2) mediastinal lymph node dissection Functional Status: Reports: Pain Controlled (Tramadol 100 mg PO every 6 hours, Tylenol 1000 mg PO every 6 hours, ibuprofen 600 mg every 6 hours), Tolerating Diet (Oral intake 2770 mL), Urinating (Urine ouptut 2600 mL) - Review of Systems Systems Review Comment:: 52 YO male Steven Jett is post op day 5 from a L thoracotomy with 1) ANGIE lobectomy and 2) mediastinal lymph node dissection. The patient's pain is well controlled on PO pain medications as reported in note. The patient does not have any questions or concerns at this time. - Patient Data Vitals - Most Recent: Last Vital Signs Temp 36.7 C 10/15/18 07:11 Pulse 49 L 10/15/18 07:11 Resp 16 10/15/18 07:11 BP 124/76 10/15/18 07:11 Pulse Ox 98 10/15/18 07:11 Weight - Most Recent: 82.1 kg I&O - Last 24 Hours: Intake & Output 10/14/18 10/15/18 10/15/18 22:59 06:59 14:59 Intake Total 1300 947 Output Total 950 1700 Balance 350 -753 Med Orders - Current: Current Medications Acetaminophen (Tylenol Extra Strength) 1,000 mg PO Q6H [facility] Last Admin: 10/15/18 07:16 Dose: 1,000 mg Albuterol/Ipratropium (Duoneb 3.0-0.5 Mg/3 Ml) 3 ml NEB Q6H PRN PRN Reason: Shortness of Breath Last Admin: 10/13/18 22:29 Dose: 3 ml Aripiprazole (Abilify) 15 mg PO DAILY [facility] Last Admin: 10/14/18 08:35 Dose: 15 mg Aspirin (Halfprin) 81 mg PO DAILY [facility] Last Admin: 10/14/18 08:35 Dose: 81 mg Atorvastatin Calcium (Lipitor) 40 mg PO BEDTIME [facility] Last Admin: 10/14/18 20:31 Dose: 40 mg Bisacodyl (Dulcolax) 10 mg PO BID [facility] Last Admin: 10/14/18 20:31 Dose: 10 mg Clopidogrel Bisulfate (Plavix) 75 mg PO DAILY [facility] Last Admin: 10/14/18 08:35 Dose: 75 mg Docusate Sodium (Colace) 100 mg PO BID [facility] Last Admin: 10/14/18 20:30 Dose: 100 mg Escitalopram Oxalate (Lexapro) 20 mg PO DAILY [facility] Last Admin: 10/14/18 08:35 Dose: 20 mg Hydroxyzine HCl (Vistaril) 100 mg IM Q4H PRN PRN Reason: PAIN Dextrose/Lactated Ringer's (Dextrose 5%-Lactated Ringers) 1,000 mls @ 50 mls/ hr IV ASDIRECTED [facility] Last Admin: 10/14/18 09:35 Dose: 50 mls/hr Ibuprofen (Motrin) 600 mg PO Q6H [facility] Last Admin: 10/15/18 07:16 Dose: 600 mg Lisinopril (Prinivil) 2.5 mg PO DAILY [facility] Last Admin: 10/14/18 08:33 Dose: 2.5 mg Metoprolol Tartrate (Lopressor) 25 mg PO BID [facility] Last Admin: 10/14/18 20:30 Dose: 25 mg Morphine Sulfate (Morphine Carburizing Furnace Operator 150 Mg In 30 Ml) 0 mg IV ASDIRECTED PRN; Protocol PRN Reason: Pain Last Admin: 10/13/18 17:21 Dose: 150 mg Naloxone HCl (Narcan) 0.1 mg IVPUSH Q2M PRN PRN Reason: Respiratory Distress Nicotine (Habitrol) 21 mg TRDERM DAILY [facility] Last Admin: 10/14/18 08:32 Dose: 21 mg Ondansetron HCl (Zofran) 4 mg IVPUSH Q4H PRN PRN Reason: Nausea Pantoprazole Sodium (Protonix) 40 mg PO ACBREAKFAST [facility] Last Admin: 10/15/18 07:16 Dose: 40 mg Ramelteon (Rozerem) 8 mg PO BEDTIME [facility] Last Admin: 10/14/18 20:30 Dose: 8 mg Tramadol HCl (Ultram) 100 mg PO Q6H [facility] Last Admin: 10/15/18 04:00 Dose: 100 mg Discontinued Medications Acetaminophen (Tylenol Extra Strength) 1,000 mg PO ONETIME ONE Stop: 10/10/18 06:46 Last Admin: 10/10/18 06:53 Dose: 1,000 mg Albuterol (Proventil Neb Soln) 2.5 mg NEB ONETIME ONE Stop: 10/10/18 07:32 Last Admin: 10/10/18 07:48 Dose: 2.5 mg Albuterol/Ipratropium (Duoneb 3.0-0.5 Mg/3 Ml) Confirm Administered Dose 3 ml .ROUTE .STK-MED ONE Stop: 10/10/18 07:38 Last Admin: 10/10/18 11:02 Dose: Not Given Bupivacaine HCl/Epinephrine Bitart (Marcaine 0.5%/Epinephrine 1:200,000) Confirm Administered Dose 50 ml .ROUTE .STK-MED ONE Stop: 10/10/18 07:09 Last Admin: 10/10/18 10:18 Dose: 50 ml Dexamethasone (Dexamethasone) Confirm Administered Dose 4 mg .ROUTE .STK-MED ONE Stop: 10/10/18 08:44 Fentanyl (Sublimaze) Confirm Administered Dose 250 mcg .ROUTE .STK-MED ONE Stop: 10/10/18 08:36 Fentanyl (Sublimaze) Confirm Administered Dose 100 mcg .ROUTE .STK-MED ONE Stop: 10/10/18 09:47 Furosemide (Lasix) 10 mg IVPUSH ONETIME ONE Stop: 10/12/18 08:01 Last Admin: 10/12/18 08:29 Dose: 10 mg Furosemide (Lasix) 20 mg IV ONETIME ONE Stop: 10/13/18 08:16 Last Admin: 10/13/18 08:34 Dose: 20 mg Furosemide (Lasix) 20 mg IVPUSH ONETIME ONE Stop: 10/13/18 22:17 Last Admin: 10/13/18 22:28 Dose: 20 mg Glycopyrrolate (Robinul) Confirm Administered Dose 1 mg .ROUTE .STK-MED ONE Stop: 10/10/18 08:44 Heparin Sodium (Porcine) (Heparin Sodium) Confirm Administered Dose 5,000 units .ROUTE .STK-MED ONE Stop: 10/10/18 08:44 Cefazolin Sodium/Dextrose 2 gm (/ Premix) 50 mls @ 100 mls/hr IV ONETIME ONE Stop: 10/10/18 09:44 Last Admin: 10/10/18 09:45 Dose: 100 mls/hr Dextrose/Lactated Ringer's (Dextrose 5%-Lactated Ringers) 1,000 mls @ 100 mls/ hr IV ASDIRECTED [facility] Last Admin: 10/10/18 07:35 Dose: 100 mls/hr Fentanyl 2,500 mcg/ Sodium (Chloride) 250 mls @ 0 mls/hr EPIDUR TITRATE [facility]; Protocol Last Admin: 10/13/18 00:26 Dose: 120 mcg/hr, 12 mls/hr Sodium Chloride (Normal Saline) Confirm Administered Dose 500 mls @ as directed .ROUTE .STK-MED ONE Stop: 10/10/18 08:44 Lidocaine HCl (Xylocaine-Mpf 1%) Confirm Administered Dose 2 mls @ as directed .ROUTE .K-MED ONE Stop: 10/10/18 08:58 Lactated Ringer's (Ringers, Lactated) Confirm Administered Dose 1,000 mls @ as directed .ROUTE .[facility]-MED ONE Stop: 10/10/18 09:46 Sodium Chloride (Normal Saline) Confirm Administered Dose 10 mls @ as directed .ROUTE .[facility] ONE Stop: 10/10/18 09:47 Acetaminophen (Ofirmev) 100 mls @ 400 mls/hr IV Q6H [facility] Stop: 10/10/18 14:14 Last Admin: 10/10/18 13:57 Dose: 400 mls/hr Dextrose/Lactated Ringer's (Dextrose 5%-Lactated Ringers) 1,000 mls @ 175 mls/ hr IV ASDIRECTED [facility] Last Admin: 10/11/18 03:16 Dose: 175 mls/hr Cefazolin Sodium/Dextrose 2 gm (/ Premix) 50 mls @ 100 mls/hr IV Q8H [facility] Stop: 10/13/18 09:29 Last Admin: 10/13/18 08:38 Dose: 100 mls/hr Dextrose/Lactated Ringer's (Dextrose 5%-Lactated Ringers) 1,000 mls @ 100 mls/ hr IV ASDIRECTED [facility] Last Admin: 10/12/18 22:36 Dose: 100 mls/hr Magnesium Sulfate 2 gm/ Premix 50 mls @ 12.5 mls/hr IV Q6H [facility] Stop: 10/13/18 07:59 Last Admin: 10/13/18 03:11 Dose: 12.5 mls/hr Meropenem (Merrem) Confirm Administered Dose 500 mg .ROUTE .STK-MED ONE Stop: 10/10/18 07:09 Last Admin: 10/10/18 10:18 Dose: 500 mg Metoprolol Tartrate (Lopressor) 25 mg PO BID [facility] Last Admin: 10/11/18 09:50 Dose: 25 mg Midazolam HCl (Versed 1 Mg/Ml) Confirm Administered Dose 2 mg .ROUTE .STK-MED ONE Stop: 10/10/18 08:59 Naloxone HCl (Narcan) 0.1 mg IVPUSH Q5M PRN PRN Reason: RESP RATE LESS THAN 6/MINUTE Neostigmine Methylsulfate (Neostigmine) Confirm Administered Dose 5 mg .ROUTE .STK-MED ONE Stop: 10/10/18 08:44 Ondansetron HCl (Zofran) Confirm Administered Dose 4 mg .ROUTE .STK-MED ONE Stop: 10/10/18 08:44 Pantoprazole Sodium (Protonix Iv) 40 mg IV Q24H [facility] Last Admin: 10/12/18 16:04 Dose: 40 mg Propofol (Diprivan 20 Ml) Confirm Administered Dose 200 mg .ROUTE .STK-MED ONE Stop: 10/10/18 08:44 Rocuronium [place] (Zemuron) Confirm Administered Dose 50 mg .ROUTE .STK-MED ONE Stop: 10/10/18 08:44 Rocuronium [place] (Zemuron) Confirm Administered Dose 50 mg .ROUTE .STK-MED ONE Stop: 10/10/18 10:38 Succinylcholine Chloride (Quelicin) Confirm Administered Dose 200 mg .ROUTE .[facility] -MED ONE Stop: 10/10/18 08:44 - Exam General: Alert, Oriented HEENT: Pupils Equal, Pupils Reactive Neck: Supple Lungs: Clear to Auscultation, Normal Respiratory Effort Cardiovascular: Regular Rate, Regular Rhythm Extremities: No Pedal Edema, Normal Capillary Refill Neurological: No New Focal Deficit Psy/Mental Status: Normal Affect, Normal Mood Physical Findings Comment:: Chest tube fluid level 450 mL, fluid is fluctuating in the tubing, small amount of bubbles so the air leak is slowing. The chest x-ray shows decreased subcutaneous air, good lung markings in all lung dominguez, and a high riding left diaphragm. These changes are all within normal limits. 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 - Problem List Review Problem List Initiated/Reviewed/Updated: Yes - My Orders Last 24 Hours: Active Orders 24 hr Category Date Time Status Cardiac Monitoring Discontinue [RC] Click to Edit Care 10/14/18 08:30 Active Cardiac Monitoring [RC] .As Directed Care 10/14/18 08:06 Inactive Medication Orders Acetaminophen (Tylenol Extra Strength) 1,000 mg PO Q6H [facility] Last Admin: 10/15/18 07:16 Dose: 1,000 mg Admin: 10/15/18 02:25 Dose: 1,000 mg Admin: 10/14/18 20:30 Dose: 1,000 mg Admin: 10/14/18 14:27 Dose: 1,000 mg Admin: 10/14/18 08:35 Dose: 1,000 mg Admin: 10/14/18 02:50 Dose: 1,000 mg Admin: 10/13/18 20:01 Dose: 1,000 mg Admin: 10/13/18 15:19 Dose: Not Given Admin: 10/13/18 08:36 Dose: 1,000 mg Admin: 10/13/18 01:27 Dose: 1,000 mg Admin: 10/12/18 20:13 Dose: 1,000 mg Admin: 10/12/18 14:52 Dose: 1,000 mg Admin: 10/12/18 08:34 Dose: 1,000 mg Admin: 10/12/18 01:11 Dose: 1,000 mg Admin: 10/11/18 20:15 Dose: 1,000 mg Admin: 10/11/18 13:20 Dose: 1,000 mg Admin: 10/11/18 09:08 Dose: 1,000 mg Admin: 10/11/18 01:29 Dose: 1,000 mg Admin: 10/10/18 20:51 Dose: 1,000 mg Albuterol/Ipratropium (Duoneb 3.0-0.5 Mg/3 Ml) 3 ml NEB Q6H PRN PRN Reason: Shortness of Breath Last Admin: 10/13/18 22:29 Dose: 3 ml Aripiprazole (Abilify) 15 mg PO DAILY [facility] Last Admin: 10/14/18 08:35 Dose: 15 mg Admin: 10/13/18 08:34 Dose: 15 mg Admin: 10/12/18 08:35 Dose: 15 mg Admin: 10/11/18 09:10 Dose: 15 mg Aspirin (Halfprin) 81 mg PO DAILY [facility] Last Admin: 10/14/18 08:35 Dose: 81 mg Admin: 10/13/18 08:37 Dose: 81 mg Admin: 10/12/18 08:37 Dose: 81 mg Admin: 10/11/18 09:09 Dose: 81 mg Atorvastatin Calcium (Lipitor) 40 mg PO BEDTIME [facility] Last Admin: 10/14/18 20:31 Dose: 40 mg Admin: 10/13/18 20:04 Dose: 40 mg Admin: 10/12/18 20:14 Dose: 40 mg Admin: 10/11/18 20:16 Dose: 40 mg Admin: 10/10/18 20:51 Dose: 40 mg Bisacodyl (Dulcolax) 10 mg PO BID [facility] Last Admin: 10/14/18 20:31 Dose: 10 mg Admin: 10/14/18 08:35 Dose: 10 mg Admin: 10/13/18 20:03 Dose: 10 mg Admin: 10/13/18 08:36 Dose: 10 mg Admin: 10/12/18 20:13 Dose: 10 mg Admin: 10/12/18 08:35 Dose: 10 mg Clopidogrel Bisulfate (Plavix) 75 mg PO DAILY [facility] Last Admin: 10/14/18 08:35 Dose: 75 mg Admin: 10/13/18 08:36 Dose: 75 mg Admin: 10/12/18 08:38 Dose: 75 mg Docusate Sodium (Colace) 100 mg PO BID [facility] Last Admin: 10/14/18 20:30 Dose: 100 mg Admin: 10/14/18 08:35 Dose: 100 mg Admin: 10/13/18 20:03 Dose: 100 mg Admin: 10/13/18 08:36 Dose: 100 mg Admin: 10/12/18 20:13 Dose: 100 mg Admin: 10/12/18 08:36 Dose: 100 mg Admin: 10/11/18 20:15 Dose: 100 mg Admin: 10/11/18 09:09 Dose: 100 mg Escitalopram Oxalate (Lexapro) 20 mg PO DAILY [facility] Last Admin: 10/14/18 08:35 Dose: 20 mg Admin: 10/13/18 08:35 Dose: 20 mg Admin: 10/12/18 08:37 Dose: 20 mg Admin: 10/11/18 09:09 Dose: 20 mg Hydroxyzine HCl (Vistaril) 100 mg IM Q4H PRN PRN Reason: PAIN Dextrose/Lactated Ringer's (Dextrose 5%-Lactated Ringers) 1,000 mls @ 50 mls/ hr IV ASDIRECTED [facility] Last Admin: 10/14/18 09:35 Dose: 50 mls/hr Ibuprofen (Motrin) 600 mg PO Q6H [facility] Last Admin: 10/15/18 07:16 Dose: 600 mg Admin: 10/15/18 02:25 Dose: 600 mg Admin: 10/14/18 20:30 Dose: 600 mg Admin: 10/14/18 14:26 Dose: 600 mg Admin: 10/14/18 08:33 Dose: 600 mg Admin: 10/14/18 02:51 Dose: 600 mg Admin: 10/13/18 20:02 Dose: 600 mg Admin: 10/13/18 15:19 Dose: Not Given Admin: 10/13/18 08:35 Dose: 600 mg Lisinopril (Prinivil) 2.5 mg PO DAILY [facility] Last Admin: 10/14/18 08:33 Dose: 2.5 mg Admin: 10/13/18 08:37 Dose: 2.5 mg Admin: 10/12/18 08:39 Dose: 2.5 mg Admin: 10/11/18 09:45 Dose: Not Given Metoprolol Tartrate (Lopressor) 25 mg PO BID [facility] Last Admin: 10/14/18 20:30 Dose: 25 mg Admin: 10/14/18 10:02 Dose: 25 mg Admin: 10/13/18 20:04 Dose: 25 mg Admin: 10/13/18 08:36 Dose: 25 mg Admin: 10/12/18 20:15 Dose: 25 mg Admin: 10/12/18 08:38 Dose: 25 mg Morphine Sulfate (Morphine Carburizing Furnace Operator 150 Mg In 30 Ml) 0 mg IV ASDIRECTED PRN; Protocol PRN Reason: Pain Last Admin: 10/13/18 17:21 Dose: 150 mg Naloxone HCl (Narcan) 0.1 mg IVPUSH Q2M PRN PRN Reason: Respiratory Distress Nicotine (Habitrol) 21 mg TRDERM DAILY [facility] Last Admin: 10/14/18 08:32 Dose: 21 mg Admin: 10/13/18 08:35 Dose: 21 mg Admin: 10/12/18 08:36 Dose: 21 mg Admin: 10/11/18 09:11 Dose: 21 mg Admin: 10/10/18 17:54 Dose: 21 mg Ondansetron HCl (Zofran) 4 mg IVPUSH Q4H PRN PRN Reason: Nausea Pantoprazole Sodium (Protonix) 40 mg PO ACBREAKFAST [facility] Last Admin: 10/15/18 07:16 Dose: 40 mg Admin: 10/14/18 08:35 Dose: 40 mg Admin: 10/13/18 11:29 Dose: 40 mg Ramelteon (Rozerem) 8 mg PO BEDTIME [facility] Last Admin: 10/14/18 20:30 Dose: 8 mg Admin: 10/13/18 20:05 Dose: 8 mg Admin: 10/12/18 20:15 Dose: 8 mg Admin: 10/11/18 20:16 Dose: 8 mg Admin: 10/10/18 20:51 Dose: 8 mg Tramadol HCl (Ultram) 100 mg PO Q6H [facility] Last Admin: 10/15/18 04:00 Dose: 100 mg Admin: 10/14/18 22:23 Dose: 100 mg Admin: 10/14/18 17:38 Dose: 100 mg Admin: 10/14/18 09:41 Dose: 100 mg Admin: 10/14/18 03:01 Dose: 100 mg Admin: 10/13/18 22:54 Dose: 100 mg Admin: 10/13/18 18:25 Dose: 100 mg Admin: 10/13/18 11:23 Dose: 100 mg - Assessment Assessment (Free Text/Narrative):: Assessment: Post Operative Progress Notes: Assistants: Hanny Steele PA-C and JARVIS Bryan Operation/Findings: L thoracotomy with 1) ANGIE lobectomy and 2) mediastinal lymph node dissection Wound Classification: II Complications: No Estimated Blood Loss: about 100 u Date of Surgery: 10/10/2018 Surgeon: Joseph Francisco MD - Plan Plan (Free Text/Narrative):: 1. No new orders at this time. Continue regimen.
[2018-10-15] MEDS: ARIPiprazole 10 MG Tab PO SCH (08:19)
[2018-10-15] MEDS: Clopidogrel 75 MG Tab PO SCH (08:20)
[2018-10-15] MEDS: Lisinopril 2.5 MG Tab PO SCH (08:20)
[2018-10-15] MEDS: Aspirin 81 MG Tab.EC PO SCH (08:20)
[2018-10-15] MEDS: Escitalopram 20 MG Tab PO SCH (08:20)
[2018-10-15] MEDS: Docusate Sodium 100 MG Cap PO SCH ×2 (08:20→23:09)
[2018-10-15] MEDS: Metoprolol Tartrate 25 MG Tab PO SCH ×2 (08:20→20:00)
[2018-10-15] MEDS: Bisacodyl 5 MG Tab PO SCH ×2 (08:20→23:09)
[2018-10-15] MEDS: Nicotine 21 MG/24 Hr Patch TRDERM SCH (08:21)
[2018-10-15] MEDS ORDERED: Polyethylene Glycol 3350 Powder 119 GM Bottle PO PRN (15:41)
[2018-10-15] MEDS: Dextrose 5%-Lactated Ringers 1,000 ML IV SCH (15:52)
[2018-10-15] MEDS ORDERED: Bacitracin Oint 28.35 GM Tube TOP PRN (15:54)
[2018-10-15] MEDS ORDERED: Polyethylene Glycol 3350 Powder 119 GM Bottle PO ONE (16:00)
[2018-10-15] MEDS: atorvaSTATin 20 MG Tab PO SCH (20:00)
[2018-10-16] MEDS: Acetaminophen 500 MG Tab PO SCH ×4 (03:00→20:33)
[2018-10-16] MEDS: Ibuprofen 600 MG Tab PO SCH ×4 (03:00→20:33)
[2018-10-16] MEDS: traMADol 50 MG Tab PO SCH ×4 (03:04→22:55)
[2018-10-16] MEDS ORDERED: HYDROmorphone 2 MG Tab PO PRN (08:08)
[2018-10-16] MEDS: Pantoprazole 40 MG Tab.CR PO SCH (09:40)
[2018-10-16] MEDS: Escitalopram 20 MG Tab PO SCH (09:40)
[2018-10-16] MEDS: Nicotine 21 MG/24 Hr Patch TRDERM SCH (09:40)
[2018-10-16] MEDS: ARIPiprazole 10 MG Tab PO SCH (09:40)
[2018-10-16] MEDS: Aspirin 81 MG Tab.EC PO SCH (09:41)
[2018-10-16] MEDS: Clopidogrel 75 MG Tab PO SCH (09:41)
[2018-10-16] MEDS: Metoprolol Tartrate 25 MG Tab PO SCH ×4 (09:42→22:56)
[2018-10-16] MEDS: Bisacodyl 5 MG Tab PO SCH (09:42)
[2018-10-16] MEDS: Lisinopril 2.5 MG Tab PO SCH (09:42)
[2018-10-16] MEDS: Docusate Sodium 100 MG Cap PO SCH (09:42)
--- NOTE | 2018-10-16 10:46 | PN ---
DATE OF SERVICE: 10/11/2018 The patient is postoperative day #1 from a left upper lobectomy and mediastinal lymph node dissection. Clinically, no major problems have been noted overnight. Pain control appears to be good with the epidural catheter, and we will leave that in place for today. Urine output has been satisfactory, and we will back down on the IV rate. Chest x-ray shows good inflation with near complete obliteration of the apical airspace by the lung markings. Chest tube output was recorded at 800 mL, but is becoming more serous. Most of that was probably irrigation. The plan today, we will go up to a full liquid diet, continue the epidural catheter, and work with continued pulmonary toilet. Joseph Francisco MD /[id number]
--- NOTE | 2018-10-16 11:49 | PN ---
DATE OF SERVICE: 10/12/2018 The patient has been afebrile with stable vital signs, did develop an air leak overnight, but lung appears to be well inflated with the chest tube to water seal. Otherwise, will go up to regular diet today. He is getting good pain control with the epidural. I think we will leave that in for another day and a half or so and increase bowel stimulation while we are awaiting the pathology report. Joseph Francisco MD /[id number]
--- NOTE | 2018-10-16 13:52 | PN ---
DATE OF SERVICE: 10/16/2018 The patient has been afebrile with stable vital signs. Chest tube output is around 400, still has an air leak when he coughs, but this appears to be diminishing. We will switch to a small box chest tube today and strictly oral pain medication. He may be ready for discharge home tomorrow, in which case, we will set up some home care if he goes home with the chest tubes in place. Joseph Francisco MD /[id number]
[2018-10-16] MEDS: atorvaSTATin 20 MG Tab PO SCH (20:32)
[2018-10-17] MEDS: Acetaminophen 500 MG Tab PO SCH ×2 (03:00→09:54)
[2018-10-17] MEDS: Ibuprofen 600 MG Tab PO SCH ×2 (03:00→09:55)
[2018-10-17] MEDS: traMADol 50 MG Tab PO SCH ×2 (03:09→09:59)
--- NOTE | 2018-10-17 05:01 | CRLCR ---
HISTORY: Follow-up chest tube. Lung resection. COMPARISON: 10/15/2018 FINDINGS: A portable erect AP view of the chest was obtained at 0426 hours. During the interval, there has been no change in satisfactory positioning of 2 left-sided chest tubes with tips directed into the left upper chest. There is no sign of pneumothorax. There has been no change in mild subcutaneous emphysema scattered throughout the chest with moderate subcutaneous emphysema in the apex and base of the neck on the left. Again seen is a line of surgical skin valentino crossing the left lower chest. Again seen are changes of left upper lobectomy with surgical clips in the left superior hilum and moderate shift of the mediastinum towards the left. The lungs otherwise remain clear. The heart remains normal in size. The mediastinum is otherwise normal in appearance. The osseous structures are normal in appearance for the patient`s age. IMPRESSION: Stable satisfactory appearance status post left upper lobectomy. Continued satisfactory positioning of left sided chest tubes with no sign of pneumothorax. Stable mild left subcutaneous emphysema, remaining moderate over the left apex and extending into the base of the neck on the left. Dictated by Ry Blankenship MD @ Oct 17 2018 4:56AM Signed by Dr. Ry Blankenship @ Oct 17 2018 4:59AM
[2018-10-17 08:11] VITALS: BP 131/55
[2018-10-17] MEDS: ARIPiprazole 10 MG Tab PO SCH (09:54)
[2018-10-17] MEDS: Metoprolol Tartrate 25 MG Tab PO SCH (09:54)
[2018-10-17] MEDS: Clopidogrel 75 MG Tab PO SCH (09:54)
[2018-10-17] MEDS: Aspirin 81 MG Tab.EC PO SCH (09:55)
[2018-10-17] MEDS: Lisinopril 2.5 MG Tab PO SCH (09:55)
[2018-10-17] MEDS: Pantoprazole 40 MG Tab.CR PO SCH (09:55)
[2018-10-17] MEDS: Escitalopram 20 MG Tab PO SCH (09:55)
--- NOTE | 2018-10-17 13:10 | PCM.DCSUM1 ---
Discharge Summary - Hospital Course Free Text/Narrative:: 52 YO male patient Steven Jett is a post op patient who will be discharged today. HPI Initial Comments: No concerns from the patient at this time. The patient's pain is well controlled on strictly oral medications. Home care will be set up for the patient for chest tube management. The patient will follow up with Dr. Francisco in 2 days. Brief History: 52 YO male Steven Jett will be discharged today (10/17/2018) . Patient underwent a left lung resection with mediastinal lymph node resection due to a left lung mass on 10/10/2018. The surgery was performed by Dr. Joseph Francisco under general anesthesia without complications. A chest tube was placed during surgery. The patient was then monitored in the ICU. Post Op Day 1: No major problems were noted overnight. Pain was well controlled with an epidural catheter. Urine output was satisfactoy, so IV rate was decreased. Chest x-ray showed good lung inflation with near complete obliteration of apical airspace by the lung markings. Chest tube output was 800 mL and was most likely irrigation fluid. Moved to a full liquid diet and continued pulmonary toilet. Post Op Day 2: Patient remained afebrile with vital signs within normal limits, but did develop an airleak overnight. Lung still appears well inflated with the chest tube to a water seal. Moved to regular diet today. Good pain control with continued epidural. Post Op Day 3: Patient remains afebrile with stable vital signs. Pain is still wel controlled with epidural but will start scheduled ibuprofen and tramadol PO for pain. Patient is tolerating regular diet and is now passing gas. Post Op Day 4: Patient remains afebrile with stable vital signs. Epidural was DC. 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 Saline lock to TKO. Catheter DC today. Patient did have bradycardia and was monitored with telemetry. Post Op Day 5: Patient remains afebrile with stable vital signs. Pain controlled with Tramadol, ibuprofen, and Tylenol. Post Op Day 6: Patient remains afebrile with stable vital signs. Chest tube output diminished to 400, still has an air leaks when he coughs but was switched to a small box chest tube. Strictly on oral pain medication. Post Op Day 7: Patient remains afebrile with stable vital signs. Patient will be discharged today. The patient will be set up with home care for assistance with chest tube management. Diagnosis: Stroke: No Modified [place] Scale: No Symptoms at All Modified [place] Scale Score: 0 - Discharge Data Discharge Date: 10/17/18 Discharge Disposition: Home, W Home Health Agency 06 Condition: Good - Discharge Diagnosis/Problem(s) (1) Status post lobectomy of lung SNOMED Code(s): [id number], [id number], [id number] ICD Code: Z90.2 - ACQUIRED ABSENCE OF LUNG [PART OF] Status: Acute Priority: Medium Onset Date: 10/10/18 Problem Details: left lung mass with mediastinal lymph node dissection - Patient Summary/Data Operative Procedure(s) Performed: Resection left lung mass with mediastinal lymph node dissection with frozen section Complications: None. Consults: Dr. Joseph Francisco MD Recommended Follow-up Testing/Procedures: Follow-Up Plan: 10/19/2018 at 9:00 AM - Patient Instructions Diet: Usual Diet as Tolerated, Drink 8-10+ Glasses/Day Activity: No Lifting Over 10 Pounds Driving: Do Not Drive Showering/Bathing: May Shower Wound/Incision Care: Keep Operative Site/Wound Site Clean and Dry (Empty and measure chest tube daily) Notify Provider of: Fever, Increased Pain Other/Special Instructions: Use incentive inspirometer 10 times every hour while awake for 1 week. - Discharge Plan Prescriptions/Med Rec: HYDROmorphone [Dilaudid] 2 mg PO Q3H PRN #40 tablet PRN Reason: Pain traMADol [Ultram] 100 mg PO Q6H PRN #50 tablet PRN Reason: Pain Home Medications: Home Meds ARIPiprazole [Aripiprazole] 15 mg PO DAILY 08/04/18 [History] Aspirin [Halfprin] 81 mg PO DAILY 08/04/18 [History] Clopidogrel Bisulfate [Clopidogrel] 75 mg PO DAILY 08/04/18 [History] Escitalopram Oxalate 20 mg PO DAILY 08/04/18 [History] Ibuprofen 800 mg PO Q8H PRN 08/04/18 [History] Lisinopril 2.5 mg PO DAILY 08/04/18 [History] Metoprolol Tartrate 25 mg PO BID 08/04/18 [History] Ramelteon [Rozerem] 8 mg PO BEDTIME 08/04/18 [History] atorvaSTATin Calcium [Lipitor] 40 mg PO BEDTIME 08/04/18 [History] hydrOXYzine HCl [hydrOXYzine] 50 mg PO TID PRN 08/04/18 [History] Acetaminophen [Tylenol Extra Strength] 1,000 mg PO Q6H tablet 10/17/18 [Rx] HYDROmorphone [Dilaudid] 2 mg PO Q3H PRN #40 tablet 10/17/18 [Rx] traMADol [Ultram] 100 mg PO Q6H PRN #50 tablet 10/17/18 [Rx] Patient Handouts: Chest Tube Insertion, Adult, Care After Referrals: Joseph Francisco MD [Physician] - 10/19/18 9:00 am - Discharge Summary/Plan Comment DC Time >30 min.: Yes - General Info Date of Service: 10/17/18 Admission Dx/Problem (Free Text: Left lung mass Subjective Update: The patient is doing very well with stable vital signs. Has no concerns at this time and is ready to go home. He will be taking a small chest tube box home and home care will be set up to help with chest tube management daily. Functional Status: Reports: Pain Controlled, Tolerating Diet, Ambulating, Urinating - Review of Systems Systems Review Comment: No pertinent positives or negatives for the ROS. - Patient Data Vitals - Most Recent: Last Vital Signs Temp 36.4 C 10/17/18 08:11 Pulse 65 10/17/18 09:54 Resp 16 10/17/18 08:11 BP 131/55 L 10/17/18 09:55 Pulse Ox 98 10/17/18 08:11 Weight - Most Recent: 82.1 kg I&O - Last 24 hours: Intake & Output 10/16/18 10/17/18 10/17/18 22:59 06:59 14:59 Intake Total 1175 1000 460 Output Total 1100 1050 Balance 75 -50 460 Lab Results - Last 24 hrs: Laboratory Results - last 24 hr 10/10/18 Range/Units 07:00 Crossmatch See Detail Med Orders - Current: Current Medications Discontinued Medications Acetaminophen (Tylenol Extra Strength) 1,000 mg PO ONETIME ONE Stop: 10/10/18 06:46 Last Admin: 10/10/18 06:53 Dose: 1,000 mg Acetaminophen (Tylenol Extra Strength) 1,[address] [facility] Last Admin: 10/17/18 09:54 Dose: 1,000 mg Albuterol (Proventil Neb Soln) 2.5 mg NEB ONETIME ONE Stop: 10/10/18 07:32 Last Admin: 10/10/18 07:48 Dose: 2.5 mg Albuterol/Ipratropium (Duoneb 3.0-0.5 Mg/3 Ml) Confirm Administered Dose 3 ml .ROUTE .STK-MED ONE Stop: 10/10/18 07:38 Last Admin: 10/10/18 11:02 Dose: Not Given Albuterol/Ipratropium (Duoneb 3.0-0.5 Mg/3 Ml) 3 ml NEB Q6H PRN PRN Reason: Shortness of Breath Last Admin: 10/13/18 22:29 Dose: 3 ml Aripiprazole (Abilify) [address] [facility] Last Admin: 10/17/18 09:54 Dose: 15 mg Aspirin (Halfprin) [address] [facility] Last Admin: 10/17/18 09:55 Dose: 81 mg Atorvastatin Calcium (Lipitor) [address] [facility] Last Admin: 10/16/18 20:32 Dose: 40 mg Bacitracin (Bacitracin Oint) 0 gm TOP TID PRN PRN Reason: affected area right leg Bisacodyl (Dulcolax) [address] [facility] Last Admin: 10/16/18 09:42 Dose: Not Given Bupivacaine HCl/Epinephrine Bitart (Marcaine 0.5%/Epinephrine 1:200,000) Confirm Administered Dose 50 ml .ROUTE .STK-MED ONE Stop: 10/10/18 07:09 Last Admin: 10/10/18 10:18 Dose: 50 ml Clopidogrel Bisulfate (Plavix) [address] [facility] Last Admin: 10/17/18 09:54 Dose: 75 mg Dexamethasone (Dexamethasone) Confirm Administered Dose 4 mg .ROUTE .STK-MED ONE Stop: 10/10/18 08:44 Docusate Sodium (Colace) [address] [facility] Last Admin: 10/16/18 09:42 Dose: Not Given Escitalopram Oxalate (Lexapro) [address] [facility] Last Admin: 10/17/18 09:55 Dose: 20 mg Fentanyl (Sublimaze) Confirm Administered Dose 250 mcg .ROUTE .STK-MED ONE Stop: 10/10/18 08:36 Fentanyl (Sublimaze) Confirm Administered Dose 100 mcg .ROUTE .[facility]-MED ONE Stop: 10/10/18 09:47 Furosemide (Lasix) 10 mg IVPUSH ONETIME ONE Stop: 10/12/18 08:01 Last Admin: 10/12/18 08:29 Dose: 10 mg Furosemide (Lasix) 20 mg IV ONETIME ONE Stop: 10/13/18 08:16 Last Admin: 10/13/18 08:34 Dose: 20 mg Furosemide (Lasix) 20 mg IVPUSH ONETIME ONE Stop: 10/13/18 22:17 Last Admin: 10/13/18 22:28 Dose: 20 mg Glycopyrrolate (Robinul) Confirm Administered Dose 1 mg .ROUTE .[facility] ONE Stop: 10/10/18 08:44 Heparin Sodium (Porcine) (Heparin Sodium) Confirm Administered Dose 5,000 units .ROUTE .[facility] ONE Stop: 10/10/18 08:44 Hydromorphone HCl (Dilaudid) 2 mg PO Q3H PRN PRN Reason: Pain Hydroxyzine HCl (Vistaril) 100 mg IM Q4H PRN PRN Reason: PAIN Cefazolin Sodium/Dextrose 2 gm (/ Premix) 50 mls @ 100 mls/hr IV ONETIME ONE Stop: 10/10/18 09:44 Last Admin: 10/10/18 09:45 Dose: 100 mls/hr Dextrose/Lactated Ringer's (Dextrose 5%-Lactated Ringers) 1,000 mls @ 100 mls/ hr IV ASDIRECTED [facility] Last Admin: 10/10/18 07:35 Dose: 100 mls/hr Fentanyl 2,500 mcg/ Sodium (Chloride) 250 mls @ 0 mls/hr EPIDUR TITRATE [facility]; Protocol Last Admin: 10/13/18 00:26 Dose: 120 mcg/hr, 12 mls/hr Sodium Chloride (Normal Saline) Confirm Administered Dose 500 mls @ as directed .ROUTE .ST-MED ONE Stop: 10/10/18 08:44 Lidocaine HCl (Xylocaine-Mpf 1%) Confirm Administered Dose 2 mls @ as directed .ROUTE .[facility] ONE Stop: 10/10/18 08:58 Lactated Ringer's (Ringers, Lactated) Confirm Administered Dose 1,000 mls @ as directed .ROUTE .[facility] ONE Stop: 10/10/18 09:46 Sodium Chloride (Normal Saline) Confirm Administered Dose 10 mls @ as directed .ROUTE .[facility] ONE Stop: 10/10/18 09:47 Acetaminophen (Ofirmev) 100 mls @ 400 mls/hr IV Q6H [facility] Stop: 10/10/18 14:14 Last Admin: 10/10/18 13:57 Dose: 400 mls/hr Dextrose/Lactated Ringer's (Dextrose 5%-Lactated Ringers) 1,000 mls @ 175 mls/ hr IV ASDIRECTED [facility] Last Admin: 10/11/18 03:16 Dose: 175 mls/hr Cefazolin Sodium/Dextrose 2 gm (/ Premix) 50 mls @ 100 mls/hr IV Q8H [facility] Stop: 10/13/18 09:29 Last Admin: 10/13/18 08:38 Dose: 100 mls/hr Dextrose/Lactated Ringer's (Dextrose 5%-Lactated Ringers) 1,000 mls @ 100 mls/ hr IV ASDIRECTED [facility] Last Admin: 10/12/18 22:36 Dose: 100 mls/hr Magnesium Sulfate 2 gm/ Premix 50 mls @ 12.5 mls/hr IV Q6H [facility] Stop: 10/13/18 07:59 Last Admin: 10/13/18 03:11 Dose: 12.5 mls/hr Dextrose/Lactated Ringer's (Dextrose 5%-Lactated Ringers) 1,000 mls @ 50 mls/ hr IV ASDIRECTED [facility] Last Admin: 10/15/18 15:52 Dose: 50 mls/hr Ibuprofen (Motrin) [address] [facility] Last Admin: 10/17/18 09:55 Dose: 600 mg Lisinopril (Prinivil) 2.[address] [facility] Last Admin: 10/17/18 09:55 Dose: 2.5 mg Meropenem (Merrem) Confirm Administered Dose 500 mg .ROUTE .[facility] ONE Stop: 10/10/18 07:09 Last Admin: 10/10/18 10:18 Dose: 500 mg Metoprolol Tartrate (Lopressor) [address] [facility] Last Admin: 10/11/18 09:50 Dose: 25 mg Metoprolol Tartrate (Lopressor) [address] [facility] Last Admin: 10/17/18 09:54 Dose: 25 mg Midazolam HCl (Versed 1 Mg/Ml) Confirm Administered Dose 2 mg .ROUTE .STK-MED ONE Stop: 10/10/18 08:59 Morphine Sulfate (Morphine Psychological Anthropologist 150 Mg In 30 Ml) 0 mg IV ASDIRECTED PRN; Protocol PRN Reason: Pain Last Admin: 10/13/18 17:21 Dose: 150 mg Naloxone HCl (Narcan) 0.1 mg IVPUSH Q5M PRN PRN Reason: RESP RATE LESS THAN 6/MINUTE Naloxone HCl (Narcan) 0.1 mg IVPUSH Q2M PRN PRN Reason: Respiratory Distress Neostigmine Methylsulfate (Neostigmine) Confirm Administered Dose 5 mg .ROUTE .STK-MED ONE Stop: 10/10/18 08:44 Nicotine (Habitrol) [address] [facility] Last Admin: 10/16/18 09:40 Dose: 21 mg Ondansetron HCl (Zofran) Confirm Administered Dose 4 mg .ROUTE .STK-MED ONE Stop: 10/10/18 08:44 Ondansetron HCl (Zofran) 4 mg IVPUSH Q4H PRN PRN Reason: Nausea Pantoprazole Sodium (Protonix Iv) [address] [facility] Last Admin: 10/12/18 16:04 Dose: 40 mg Pantoprazole Sodium (Protonix) [address] [facility] Last Admin: 10/17/18 09:55 Dose: 40 mg Polyethylene Glycol (Miralax) 119 gm PO ONETIME ONE Stop: 10/15/18 16:01 Last Admin: 10/15/18 15:47 Dose: 119 gm Polyethylene Glycol (Miralax) 119 gm PO ONETIME PRN PRN Reason: Constipation Propofol (Diprivan 20 Ml) Confirm Administered Dose 200 mg .ROUTE .STK-MED ONE Stop: 10/10/18 08:44 Ramelteon (Rozerem) [address] [facility] Last Admin: 10/16/18 20:32 Dose: 8 mg Rocuronium [place] (Zemuron) Confirm Administered Dose 50 mg .ROUTE .STK-MED ONE Stop: 10/10/18 08:44 Rocuronium [place] (Zemuron) Confirm Administered Dose 50 mg .ROUTE .STK-MED ONE Stop: 10/10/18 10:38 Succinylcholine Chloride (Quelicin) Confirm Administered Dose 200 mg .ROUTE .STK -MED ONE Stop: 10/10/18 08:44 Tramadol HCl (Ultram) 100 mg PO Q6H [facility] Last Admin: 10/17/18 09:59 Dose: 100 mg Discharge Operative/Procedures - Procedures Performed Intubation Indication: Elective Surgery Chest Tube Indication: other (Resection of left lung with mediastinal lymph nodes)
--- NOTE | 2018-10-18 08:40 | OR ---
DATE OF PROCEDURE: 10/10/2018 PREOPERATIVE DIAGNOSIS: Left upper lobe mass. POSTOPERATIVE DIAGNOSIS: Left upper lobe mass (no definite malignancy identified on frozen section). OPERATIVE PROCEDURE: Left lateral thoracotomy with: 1. Left upper lobectomy (20923). 2. Mediastinal lymph node dissection (42430). ANESTHESIA: General plus epidural. ASSISTANTS: 1. Hanny Steele PA-C. 2. JARVIS Bryan. INDICATION FOR PROCEDURE: This is a 52-year-old male presenting with a left upper lobe mass. This was identified by a screening CT scan. It has CT features quite suggestive of being malignant, being in the upper lobe and spiculated, although initial bronchoscopy and CT-guided needle biopsy both failed to confirm anything malignant. Between the CT scan originally obtained and the CT-guided needle biopsy, there appeared to be increasing abscess formation within the lesion. The patient does have a high uptake on PET scan in the mass itself, as well as the hilar nodes and one paratracheal node on the left side. The situation was reviewed at length with the patient, as well as the medical oncology staff, specifically Yeni Liu PA-C. Given the workup negative for malignancy thus far and the fact that this appears to be evolving into more of an abscess, at this point, the plan is to proceed with direct resection of this area. This is located more or less in the central left upper lobe. Despite the workup being negative thus far, I think there is still some significant possibility of this being malignant, and we will proceed with a left upper lobectomy and mediastinal lymph node sampling, which would alleviate the underlying infectious process and also treat the malignancy. There is some possibility that there is a positive ipsilateral paratracheal node based on the PET scan, so at this point, I think the patient would be best served with resection nonetheless, given the evolving probable abscess development within the mass. Additionally, the findings of the patient being a heavy smoker and the left upper lobe position and the CT appearance fairly suggestive of being malignancy, all argue against waiting on this patient. From a surgical risk standpoint, he is, at this point, a fairly good risk with his preoperative pulmonary function tests being quite good with an FEV1 of 3.75 L and 96% of normal. He does have a history of myocardial infarction, but is recently status post revascularization and does not show any signs of congestive heart failure and has not had any signs of angina recently. Given all this, plan will be to proceed with a left upper lobectomy with frozen section. Even if the frozen section is negative, I have been involved in several cases over the years, where the frozen section failed to identify a malignancy, which was seen then on the permanent section, so if we going to this extent, we will proceed with a mediastinal lymph node dissection concurrently, so as to avoid having to reoperate on the patient for staging purposes. Potential risks of the procedure including bleeding, infection, injury to the vascular or other intrathoracic structures, as well as the possibility of cardiopulmonary, septic, or hemorrhagic complications leading to were all discussed, and the patient wishes to proceed. DETAILS OF PROCEDURE: The patient was taken to the operating room, and after epidural catheter and arterial line were placed, a general endotracheal anesthetic with a double lumen tube was initiated, and the patient had a Pham catheter inserted and was placed into a right lateral decubitus position. The left chest and surrounding areas were prepped and draped. A standard left lateral thoracotomy was then accomplished and carried down through the full thickness of the chest wall. The 5th interspace was then entered with division of the intercostal muscles, and the pleural space then inspected. No pleural seeding of any type and no pleural fluid were noted. The mass was easily palpable within the central aspect of the left upper lobe. With the lung deflated, this occupied roughly a third of the volume of the left upper lobe at this time. At this point, the pleura anterior, superior, and then posterior to the upper aspect of the left hilum was incised. This then allowed subsequent dissection of the superior pulmonary vein, which was then divided with a SUZANNE vascular stapler. The branches of the left pulmonary artery coming into the left upper lobe were then taken with combination of sutures and ligated with 3-0 Prolene stitch or stapled, depending on their size, and then this allowed finally division of the bronchus with a SUZANNE black load, and the specimen then delivered from the field. Off the field, frozen section was obtained, and again, no definite malignancy was identified, although the pathologist did reinforce the comment that this is not a 100% accurate exam at this point. The patient denied any significant mediastinal lymphadenopathy. The pleura in the aortopulmonary window, ascending aorta, and then above that into the left paratracheal area was incised, and the fatty and lymphatic tissues were then sequentially dissected free from those areas and sent for permanent section. Again, none of these areas appeared to be obviously malignant in their appearance. There was quite a bit of within the nodes, however. As the fatty lymphatic tissue was divided, this was accomplished either with cautery or with clips, depending on the size of the vessels entering the agata tissue. At this point, no further problems were noted. 10 mL of fibrin sealant was placed across the divided upper lobe hilum and the area of mediastinal lymph node dissection. A 32-Croatian straight and a 36-Croatian right-angled chest tube were then placed through stab wounds beneath the incision. The incision was then closed with re-approximation stitches and #2 Vicryl stitch, and the musculature was then sequentially closed with layers of #0 Vicryl stitch, the subcutaneous tissue with #4-0 Vicryl stitch, and the skin with valentino. The chest tubes were fixed with some #1 Ethibond stitch. The patient, prior to closure, had the lung reinflated, which, after division of the inferior pulmonary ligament, did fill the pleural space quite well, and initial postoperative chest x-ray showed little, if any apical area at this point and no air entrapment on inspection of the Pleur-Evac. The patient was taken to the recovery room in satisfactory condition. Physician pediatric assistant, Hanny Steele, played an essential role in assisting in this case, helping to position the patient, retract structures as needed, and suturing and cutting sutures as indicated. Her presence improved patient's safety and decreased operative time. Joseph Francisco MD /[id number]
== END 2018-10-17 10:15 | disposition home health service (06) | DRG 164 ==
LOC: JP.SDSSCHI 06:27 → JP.SDS 06:27 → EDSTATUS 10:30 → JP.ICU 13:40 → JP.2SS 10-13 06:15
PROVIDERS: ADMIT Surgery; ATTEND Surgery
PROC: 0BBG0ZZ Excision of Left Upper Lung Lobe, Open Approach (ICD-10-PCS; principal; 2018-10-10)
PROC: 07T70ZZ Resection of Thorax Lymphatic, Open Approach (ICD-10-PCS; 2018-10-10)
PROC: 0W9B00Z Drainage of Left Pleural Cavity with Drainage Device, Open Approach (ICD-10-PCS; 2018-10-10)
DX: D14.32 Benign neoplasm of left bronchus and lung (principal); J95.812 Postprocedural air leak; R91.8 Other nonspecific abnormal finding of lung field; I25.10 Atherosclerotic heart disease of native coronary artery without angina pectoris; F17.210 Nicotine dependence, cigarettes, uncomplicated; I25.2 Old myocardial infarction; R00.1 Bradycardia, unspecified; Z95.5 Presence of coronary angioplasty implant and graft; Z91.5 Personal history of self-harm; Z90.49 Acquired absence of other specified parts of digestive tract; Z85.47 Personal history of malignant neoplasm of testis; Z79.82 Long term (current) use of aspirin; M54.9 Dorsalgia, unspecified; G89.29 Other chronic pain; Z85.89 Personal history of malignant neoplasm of other organs and systems; F99 Mental disorder, not otherwise specified; G62.9 Polyneuropathy, unspecified
CPT/HCPCS: 36415; 71045; 71045-26; 80053; 82803; 83735; 83880; 84100; 85002; 85027; 86850; 86900; 86901; 86920; 86922; 94060; 94640; 94762; A9270-GY; C9113; J0131; J0330; J0690; J1100; J1644; J1940; J2001; J2185; J2250; J2270; J2405; J2704; J2710; J3010; J3475; J3490; J7040; J7042; J7050; J7120; J7620-GY

== ENCOUNTER 2018-10-31 14:35 | Emergency (ER) | payer MEDICARE, MEDICAID ==
[2018-10-31 14:53] VITALS: BP 117/75
--- NOTE | 2018-10-31 15:05 | EDM.PDOC ---
ED HPI GENERAL MEDICAL PROBLEM - General Chief Complaint: Wound Recheck Stated Complaint: [facility] Time Seen by Provider: 10/31/18 15:05 Source of Information: Reports: Patient, EMS History Limitations: Reports: No Limitations - History of Present Illness INITIAL COMMENTS - FREE TEXT/NARRATIVE: 52-year-old male in by ambulance with concerns of wound drainage on his left chest. He had a thoracotomy a month ago, chest tubes removed just over a week ago and home health is helping keep his wounds clean but there is concern of increasing erythema and drainage from the wounds, especially the lower two tube exit wounds. He is not febrile, has some pleuritic pain but is not short of breath. He has an appointment with the surgeon in 2 days. Onset: Unknown/Unsure Location: Reports: Chest Associated Symptoms: Reports: Chest Pain (Surgical incisions are still painful) Right Chest Pain Score (Numeric/FACES): 7 - Related Data Allergies Allergy/AdvReac Type Severity Reaction Status Date / Time No Known Allergies Allergy Verified 09/28/18 07:45 Home Meds: Home Meds ARIPiprazole [Aripiprazole] 15 mg PO DAILY 08/04/18 [History] Aspirin [Halfprin] 81 mg PO DAILY 08/04/18 [History] Clopidogrel Bisulfate [Clopidogrel] 75 mg PO DAILY 08/04/18 [History] Escitalopram Oxalate 20 mg PO DAILY 08/04/18 [History] Ibuprofen 800 mg PO Q8H PRN 08/04/18 [History] Lisinopril 2.5 mg PO DAILY 08/04/18 [History] Metoprolol Tartrate 25 mg PO BID 08/04/18 [History] Ramelteon [Rozerem] 8 mg PO BEDTIME 08/04/18 [History] atorvaSTATin Calcium [Lipitor] 40 mg PO BEDTIME 08/04/18 [History] hydrOXYzine HCl [hydrOXYzine] 50 mg PO TID PRN 08/04/18 [History] Acetaminophen [Tylenol Extra Strength] 1,000 mg PO Q6H tablet 10/17/18 [Rx] HYDROmorphone [Dilaudid] 2 mg PO Q3H PRN #40 tablet 10/17/18 [Rx] traMADol [Ultram] 100 mg PO Q6H PRN #50 tablet 10/17/18 [Rx] Past Medical History HEENT History: Reports: Impaired Vision Other HEENT History: wears glasses Cardiovascular History: Reports: Angina, Arrhythmia, CAD, Heart Murmur, High Cholesterol, Hypertension, [place], SOB on Exertion, Syncope Respiratory History: Reports: Asthma, COPD, Sleep Apnea, Other (See Below) Other Respiratory History: lung surgery L side states pa=alups removed by GIORDANO incision open drain white thick fluid Genitourinary History: Reports: Renal Calculus Musculoskeletal History: Reports: Arthritis, Back Pain, Chronic, Neck Pain, Chronic Neurological History: Reports: Brain Injury, Seizure Psychiatric History: Reports: Addiction, Anxiety, Depression, Psych Hospitalization(s), PTSD, Suicide Attempt Oncologic (Cancer) History: Reports: Other (See Below) Other Oncologic History: lump in neck and testicular cancer - Infectious Disease History Infectious Disease History: Reports: Chicken Pox, Mononucleosis Other Infectious Disease History: unknown - Past Surgical History HEENT Surgical History: Reports: Naso-Sinus Surgery, Oral Surgery, Tonsillectomy Cardiovascular Surgical History: Reports: Coronary Artery Stent Respiratory Surgical History: Reports: Lung Biopsies GI Surgical History: Reports: Cholecystectomy, EGD Male Surgical History: Reports: Vasectomy Neurological Surgical History: Reports: None Musculoskeletal Surgical History: Reports: Arthroscopic Knee Oncologic Surgical History: Reports: Lumpectomy, Other (See Below) Other Oncologic Surgeries/Procedures: testicular surgery; lump removed from neck Dermatological Surgical History: Reports: None Social & Family History - Family History Cardiac: Reports: Other (See Below) Other Cardiac Family History: sister-"hole in heart" OBGYN: Reports: Dysfunctional uterine bleeding Musculoskeletal: Reports: Arthritis, Back pain, Chronic Endocrine/Metabolic: Reports: Diabetes, type II Oncologic: Reports: Lung - Tobacco Use Smoking Status *Q: Former Smoker Years of Tobacco use: 43 Used Tobacco, but Quit: Yes Month/Year Tobacco Last Used: 2019 - Caffeine Use Caffeine Use: Reports: Coffee - Recreational Drug Use Recreational Drug Use: No ED ROS GENERAL - Review of Systems Review Of Systems: See Below Constitutional: Denies: Fever HEENT: Reports: No Symptoms Respiratory: Reports: Pleuritic Chest Pain GI/Abdominal: Denies: Nausea, Vomiting Skin: Reports: Erythema Neurological: Denies: Headache ED EXAM, SKIN/RASH Exam: See Below Exam Limited By: No Limitations General Appearance: Alert, No Apparent Distress Head: Atraumatic Respiratory/Chest: No Respiratory Distress, Other (Large transverse thoracotomy wound on the left eye chest shows erythema and 2 small open areas along the incision. There is warm erythema extending from the thoracotomy incision down to the exit wounds from the tubes. There is purulent drainage coming from both exit wounds.) Course - Vital Signs Last Recorded V/S: Last Vital Signs Temp 98.3 F 10/31/18 14:45 Pulse 66 10/31/18 14:45 Resp 20 10/31/18 14:45 BP 117/75 10/31/18 14:45 Pulse Ox 100 10/31/18 14:45 - Orders/Labs/Meds Orders: Active Orders 24 hr Category Date Time Status CULTURE WOUND + SMEAR [RM] Stat Lab 10/31/18 15:21 Results Meds: Medications Discontinued Medications Generic Name Dose Route Start Last Admin Trade Name Kenq PRN Reason Stop Dose Admin Amoxicillin/Clavulanate Potassium 1 tab 10/31/18 16:07 10/31/18 16:41 Augmentin 875 Mg/125 Mg PO 10/31/18 16:08 1 tab ONETIME ONE Administration Ampicillin Sodium/Sulbactam 100 mls @ 200 mls/hr 10/31/18 15:18 10/31/18 15: 33 Sodium 3 gm/ Sodium Chloride IV 10/31/18 15:47 200 mls/hr ONETIME ONE Administration - Re-Assessments/Exams Free Text/Narrative Re-Assessment/Exam: 10/31/18 15:27 Condition was discussed with Dr. Francisco, patient was given 3 g of IV Unasyn and will be placed on 875 mg of Augmentin twice daily with follow-up on Wednesday as scheduled. 10/31/18 16:17 Patient tolerated the IV antibiotics well and will take his first dose of Augmentin this evening with food. A prescription for 8 additional doses to take twice daily was given to fill tomorrow which will cover him through his appointment with Dr. Francisco on Wednesday. Cultures were taken of the wound. Departure - Departure Time of Disposition: 16:49 Disposition: Home, Self-Care 01 Clinical Impression: Postoperative cellulitis of surgical wound - Discharge Information Instructions: Wound Infection, [id number] Referrals: PCP,None [Primary Care Provider] - Forms: ED Department Discharge Care Plan Goals: Take one dose of Augmentin with food twice daily for the next 4 days and recheck with Dr. Francisco on Wednesday as scheduled. Return sooner if worsening despite antibiotic. - My Orders Last 24 Hours: My Active Orders 10/31/18 15:21 CULTURE WOUND + SMEAR [RM] Stat - Assessment/Plan Last 24 Hours: My Active Orders 10/31/18 15:21 CULTURE WOUND + SMEAR [] Stat
[2018-10-31] MEDS ORDERED: Ampicillin/Sulbactam Na 3 GM in Sodium Chloride 0.9% 100 ML IV ONE (15:18)
[2018-10-31] MEDS ORDERED: Amoxicillin/Clavulanate K 875-125 MG Tab PO ONE (16:07)
== END 2018-10-31 16:47 | disposition home or self-care (01) ==
LOC: JP.ED 14:35
DX: T81.49XA Infection following a procedure, other surgical site, initial encounter (principal); L03.313 Cellulitis of chest wall; I10 Essential (primary) hypertension; I25.10 Atherosclerotic heart disease of native coronary artery without angina pectoris; I25.2 Old myocardial infarction; F41.9 Anxiety disorder, unspecified; F32.9 Major depressive disorder, single episode, unspecified; Z79.82 Long term (current) use of aspirin; Z79.899 Other long term (current) drug therapy; Z87.891 Personal history of nicotine dependence
CPT/HCPCS: 87070; 87077; 87186; 87205; 96365; 99285; A9270; J0295; J7030

== ENCOUNTER 2018-11-14 16:38 | Emergency (ER) | payer MEDICARE, MEDICAID ==
[2018-11-14 16:53] VITALS: BP 114/83
--- NOTE | 2018-11-14 17:54 | EDM.PDOC ---
<Latasha Jang - Last Filed: 11/14/18 17:46> ED HPI GENERAL MEDICAL PROBLEM - General Chief Complaint: General Stated Complaint: NEEDS PAIN MEDS Time Seen by Provider: 11/14/18 17:25 Source of Information: Reports: Patient History Limitations: Reports: No Limitations - History of Present Illness INITIAL COMMENTS - FREE TEXT/NARRATIVE: Steven Jett is a 52 year old male who reports due to slipping on the ice and falling on his left side where he had an upper lobectomy procedure on 10/16. He has been following up with Dr. Francisco on a regular basis and finished his course of antibiotics for cellulitis. His home health aid has been cleaning his surgical site as well as dressing his wounds. He notes he will be following up with Dr. Francisco in 2 days. He is concerned because he is out of pain medication and has only been using ASA and Ibuprofen for pain control. He denies fever. Further symptoms are denied at this time. Left Upper Flank Pain Score (Numeric/FACES): 10 - Related Data Allergies Allergy/AdvReac Type Severity Reaction Status Date / Time No Known Allergies Allergy Verified 11/14/18 16:55 Home Meds: Home Meds ARIPiprazole [Aripiprazole] 15 mg PO DAILY 08/04/18 [History] Aspirin [Halfprin] 81 mg PO DAILY 08/04/18 [History] Clopidogrel Bisulfate [Clopidogrel] 75 mg PO DAILY 08/04/18 [History] Escitalopram Oxalate 20 mg PO DAILY 08/04/18 [History] Ibuprofen 800 mg PO Q8H PRN 08/04/18 [History] Lisinopril 2.5 mg PO DAILY 08/04/18 [History] Metoprolol Tartrate 25 mg PO BID 08/04/18 [History] Ramelteon [Rozerem] 8 mg PO BEDTIME 08/04/18 [History] atorvaSTATin Calcium [Lipitor] 40 mg PO BEDTIME 08/04/18 [History] hydrOXYzine HCl [hydrOXYzine] 50 mg PO TID PRN 08/04/18 [History] Acetaminophen [Tylenol Extra Strength] 1,000 mg PO Q6H tablet 10/17/18 [Rx] Past Medical History HEENT History: Reports: Impaired Vision Other HEENT History: wears glasses Cardiovascular History: Reports: Angina, Arrhythmia, CAD, Heart Murmur, High Cholesterol, Hypertension, [place], SOB on Exertion, Syncope Respiratory History: Reports: Asthma, COPD, Sleep Apnea, Other (See Below) Other Respiratory History: lung surgery L side states pa=alups removed by GIORDANO incision open drain white thick fluid Gastrointestinal History: Reports: None Genitourinary History: Reports: Renal Calculus Musculoskeletal History: Reports: Arthritis, Back Pain, Chronic, Neck Pain, Chronic Neurological History: Reports: Brain Injury, Seizure Psychiatric History: Reports: Addiction, Anxiety, Depression, Psych Hospitalization(s), PTSD, Suicide Attempt Hematologic History: Reports: Anticoagulation Therapy Oncologic (Cancer) History: Reports: Lung, Other (See Below) Other Oncologic History: lump in neck and testicular cancer - Infectious Disease History Infectious Disease History: Reports: Chicken Pox, Mononucleosis Other Infectious Disease History: unknown - Past Surgical History Head Surgeries/Procedures: Reports: None HEENT Surgical History: Reports: Naso-Sinus Surgery, Oral Surgery, Tonsillectomy Cardiovascular Surgical History: Reports: Coronary Artery Stent Respiratory Surgical History: Reports: Lung Biopsies GI Surgical History: Reports: Cholecystectomy, EGD Male Surgical History: Reports: Vasectomy Neurological Surgical History: Reports: None Musculoskeletal Surgical History: Reports: Arthroscopic Knee Oncologic Surgical History: Reports: Lumpectomy, Other (See Below) Other Oncologic Surgeries/Procedures: testicular surgery; lump removed from neck Dermatological Surgical History: Reports: None Social & Family History - Family History Cardiac: Reports: Other (See Below) Other Cardiac Family History: sister-"hole in heart" OBGYN: Reports: Dysfunctional uterine bleeding Musculoskeletal: Reports: Arthritis, Back pain, Chronic Endocrine/Metabolic: Reports: Diabetes, type II Oncologic: Reports: Lung - Tobacco Use Smoking Status *Q: Former Smoker Used Tobacco, but Quit: Yes Month/Year Tobacco Last Used: 10/2018 - Caffeine Use Caffeine Use: Reports: Coffee - Recreational Drug Use Recreational Drug Use: Yes Drug Use in Last 12 Months: Yes Recreational Drug Type: Reports: Marijuana/Hashish Recreational Drug Use Frequency: Monthly ED ROS GENERAL - Review of Systems Review Of Systems: ROS reveals no pertinent complaints other than HPI. ED EXAM, GENERAL - Physical Exam Exam: See Below Exam Limited By: No Limitations General Appearance: Alert, No Apparent Distress Head: Atraumatic, Normocephalic Neurological: Alert, Oriented Psychiatric: Normal Affect, Normal Mood Skin Exam: Warm, No Rash, Other (Left surgical site appears to be healing appropriately, does not appear cellulitic. There are 3 open sites which are draining serous fluids. ) Course - Vital Signs Last Recorded V/S: Last Vital Signs Temp 97.1 F 11/14/18 16:57 Pulse 69 11/14/18 16:57 Resp 16 11/14/18 16:57 BP 114/83 11/14/18 16:57 Pulse Ox 96 11/14/18 16:57 Departure - Departure Disposition: Home, Self-Care 01 Clinical Impression: Rib pain on left side - Discharge Information Referrals: Barak Min MD [Primary Care Provider] - Forms: ED Department Discharge Additional Instructions: Use the Ultram as needed for pain control, please keep your follow-up appointment with Dr. Francisco this week <Neymar Leon - Last Filed: 11/14/18 18:01> ED EXAM, GENERAL - Physical Exam Free Text/Narrative:: Agree with below Departure - Departure Time of Disposition: 17:58 Condition: Fair (Left-sided) - Assessment/Plan Plan: Assessment Acuity = acute Site and laterality = rib pain left side on a postsurgical site Etiology = secondary to fall Manifestations = none Location of injury = Home Lab values = none Plan He doesn't follow-up appointment with general surgery in 2 days, prescription written for Ultram 50 mg by mouth 1-2 tablets every 8 hours when necessary total #15 Neymar Combs MD was personally available for consultation in the ED. I have reviewed the chart and agree with the documentation as recorded by the KEVIN Brooks, including the assessment, treatment plan and disposition. Neymar Combs MD personally saw and examined the patient. I have reviewed and agree with the PA Student's findings. This note was dictated using [employer] voice recognition software please call with any questions on syntax or grammar.
== END 2018-11-14 18:10 | disposition home or self-care (01) ==
LOC: JP.ED 16:38
DX: R07.81 Pleurodynia (principal); I10 Essential (primary) hypertension; I25.2 Old myocardial infarction; I25.10 Atherosclerotic heart disease of native coronary artery without angina pectoris; F41.9 Anxiety disorder, unspecified; F32.9 Major depressive disorder, single episode, unspecified; Z79.82 Long term (current) use of aspirin; Z90.2 Acquired absence of lung [part of]; Z90.49 Acquired absence of other specified parts of digestive tract; Z95.5 Presence of coronary angioplasty implant and graft; Z98.890 Other specified postprocedural states; Z87.891 Personal history of nicotine dependence; W00.0XXA Fall on same level due to ice and snow, initial encounter
CPT/HCPCS: 99284

== ENCOUNTER 2022-05-05 11:00 | Emergency (ER) | payer MEDICAID, MEDICARE ==
[2022-05-05] MEDS: Sodium Chloride 0.9% 1,000 ML IV SCH (11:45)
[2022-05-05 12:24] LABS: ESTIMATED GFR 103 mL/min (>60)
[2022-05-05 12:43] VITALS: PULSE 60
[2022-05-05 13:25] VITALS: BP 117/59
== END 2022-05-05 13:42 | disposition home or self-care (01) ==
LOC: JP.ED 11:00
DX: U07.1 COVID-19 (principal); R53.1 Weakness; I25.10 Atherosclerotic heart disease of native coronary artery without angina pectoris; J44.9 Chronic obstructive pulmonary disease, unspecified; Z79.899 Other long term (current) drug therapy; Z79.82 Long term (current) use of aspirin; Z90.49 Acquired absence of other specified parts of digestive tract
CPT/HCPCS: 36415; 71045; 80053; 80143; 80179; 80307; 83735; 84439; 84443; 84484; 85025; 85610; 96360; 99284; J7050; U0002

== ENCOUNTER 2023-08-12 08:47 | Day surgery (SDC) | payer MEDICARE ==
[2023-08-12] MEDS ORDERED: Sodium Chloride 0.9% 1,000 ML IV SCH (09:45)
[2023-08-12] MEDS ORDERED: Propofol 200 MG/20 ML SDV ONE (09:49)
[2023-08-12] MEDS ORDERED: Midazolam 1 MG/ML 2 ML SDV ONE (09:50)
[2023-08-12] MEDS ORDERED: fentaNYL 50 MCG/ML SDV ONE (09:50)
[2023-08-12] MEDS ORDERED: Ampicillin 2 GM in Sodium Chloride 0.9% 100 ML IV ONE (10:00)
[2023-08-12 11:49] VITALS: BP 105/60; PULSE 60
== END 2023-08-12 12:13 | disposition home or self-care (01) ==
LOC: JP.SDS 08:47
PROVIDERS: ATTEND Surgery
DX: Z12.11 Encounter for screening for malignant neoplasm of colon (principal); J44.9 Chronic obstructive pulmonary disease, unspecified; I25.2 Old myocardial infarction
CPT/HCPCS: G0121; J0290; J2250; J2704; J3010; J3490; J7030

== ENCOUNTER 2023-08-17 07:37 | Day surgery (SDC) | payer MEDICARE ==
[2023-08-17] MEDS ORDERED: Lactated Ringers 1,000 ML IV SCH (08:15)
[2023-08-17] MEDS ORDERED: fentaNYL 100 MCG/2 ML SDV ONE (08:54)
[2023-08-17] MEDS ORDERED: Propofol 200 MG/20 ML SDV ONE (08:54)
[2023-08-17 09:10] LABS: INR 1.7; PROTHROMBIN TIME 16.4 sec (9.2-10.6)
[2023-08-17 10:57] VITALS: BP 109/63; PULSE 54
== END 2023-08-17 10:57 | disposition home or self-care (01) ==
LOC: JP.SDS 07:37
PROVIDERS: ATTEND Family Medicine
DX: R19.4 Change in bowel habit (principal); D64.9 Anemia, unspecified; R63.4 Abnormal weight loss; J44.9 Chronic obstructive pulmonary disease, unspecified; Z68.22 Body mass index [BMI] 22.0-22.9, adult
CPT/HCPCS: 36415; 45378; 85018; 85610; J2704; J3010; J7120

== ENCOUNTER 2024-05-28 10:07 | Emergency (ER) | payer MEDICARE ==
[2024-05-28 10:40] LABS: BASOPHILS ABSOLUTE AUTO 0.04 K/uL (0.00-0.10); BASOPHILS PERCENT AUTO 0.5 % (0.1-1.3); EOSINOPHILS ABSOLUTE AUTO 0.11 K/uL (0.00-0.40); EOSINOPHILS PERCENT AUTO 1.4 % (0.0-5.4); HEMATOCRIT 30.7 % (38.4-49.7); HEMOGLOBIN 11.3 g/dL (12.9-16.9); IMMATURE GRAN ABSOLUTE AUTO 0.04 K/uL (0.00-0.23); IMMATURE GRAN PERCENT AUTO 0.5 % (0.0-0.7); LYMPHOCYTES ABSOLUTE AUTO 1.36 K/uL (0.8-3.3); LYMPHOCYTES PERCENT AUTO 16.8 % (11.4-47.7); MEAN CORPUSCULAR HEMOGLOBIN 45.6 pg (31.6-35.5); MEAN CORPUSCULAR HGB CONC 36.8 g/dL (31.6-35.5); MEAN CORPUSCULAR VOLUME 123.8 fL (81.4-99.0); MONOCYTES ABSOLUTE AUTO 0.73 K/uL (0.20-0.90); NEUTROPHILS ABSOLUTE AUTO 5.81 K/uL (1.0-7.6); NEUTROPHILS PERCENT AUTO 71.8 % (40.0-78.1); PLATELET COUNT,PLT 201 K/uL (130-375); WHITE BLOOD CELL COUNT,WBC 8.1 K/uL (3.2-11.0)
[2024-05-28 10:48] LABS: A/G RATIO 1.2 (1.2-2.2); ALANINE AMINOTRANSFERASE,ALT 22 U/L (12-78); ALBUMIN 4.4 g/dL (3.4-5.0); ALKALINE PHOSPHATASE 58 U/L (46-116); ANION GAP 11.8 mmol/L (5.0-14.0); ASPARTATE AMNIOTRANSFERASE,AST 22 U/L (15-37); BILIRUBIN TOTAL 0.7 mg/dL (0.2-1.0); BLOOD UREA NITROGEN,BUN 29 mg/dL (7-18); C-REACTIVE PROTEIN < 0.50 mg/dL (<0.50); CALCIUM 9.8 mg/dL (8.5-10.1); CARBON DIOXIDE,CO2 26 mmol/L (21-32); CHLORIDE,CL 103 mmol/L (100-108); EST CRCL DRUG DOSING (CG) 80.64 mL/min; ESTIMATED GFR 86 mL/min (>60); GLUCOSE RANDOM 135 mg/dL (74-106); MAGNESIUM 1.7 mg/dL (1.8-2.4); POTASSIUM,K 4.1 mmol/L (3.6-5.2); PROTEIN TOTAL,TP 8.1 g/dL (6.4-8.2); SODIUM,NA 141 mmol/L (140-148)
[2024-05-28] MEDS: Sodium Chloride 0.9% 1,000 ML IV ONE (10:49)
[2024-05-28] MEDS: Morphine 4 MG/ML Syringe IVPUSH ONE (10:50)
[2024-05-28] MEDS: Metoclopramide 10 MG/2 ML SDV IVPUSH ONE (10:50)
[2024-05-28 10:55] VITALS: BP 116/75; PULSE 52
[2024-05-28 10:55] LABS: RED BLOOD CELL COUNT 2.48 M/uL (4.14-5.76)
[2024-05-28 11:02] LABS: SEDIMENTATION RATE MANUAL 54 mm/hr (0-20)
== END 2024-05-28 13:19 | disposition home or self-care (01) ==
LOC: JP.ED 10:07
DX: K29.70 Gastritis, unspecified, without bleeding (principal); I10 Essential (primary) hypertension; I25.10 Atherosclerotic heart disease of native coronary artery without angina pectoris; I25.2 Old myocardial infarction; E78.00 Pure hypercholesterolemia, unspecified; F17.210 Nicotine dependence, cigarettes, uncomplicated; J44.9 Chronic obstructive pulmonary disease, unspecified; Z86.16 Personal history of COVID-19; Z95.1 Presence of aortocoronary bypass graft; Z79.82 Long term (current) use of aspirin; Z79.899 Other long term (current) drug therapy; Z79.01 Long term (current) use of anticoagulants
CPT/HCPCS: 36415; 80053; 83690; 83735; 85025; 85651; 86140; 96361; 96374; 96375; 99284; J2270; J2765; J7030

== ENCOUNTER 2024-10-07 00:36 | Emergency (ER) | payer MEDICARE ==
[2024-10-07 01:04] LABS: BASOPHILS ABSOLUTE AUTO 0.04 K/uL (0.00-0.10); BASOPHILS PERCENT AUTO 0.7 % (0.1-1.3); EOSINOPHILS ABSOLUTE AUTO 0.12 K/uL (0.00-0.40); EOSINOPHILS PERCENT AUTO 2.1 % (0.0-5.4); HEMATOCRIT 30.5 % (38.4-49.7); HEMOGLOBIN 10.9 g/dL (12.9-16.9); IMMATURE GRAN ABSOLUTE AUTO 0.03 K/uL (0.00-0.23); IMMATURE GRAN PERCENT AUTO 0.5 % (0.0-0.7); LYMPHOCYTES ABSOLUTE AUTO 1.67 K/uL (0.8-3.3); LYMPHOCYTES PERCENT AUTO 28.8 % (11.4-47.7); MEAN CORPUSCULAR HEMOGLOBIN 41.9 pg (31.6-35.5); MEAN CORPUSCULAR HGB CONC 35.7 g/dL (31.6-35.5); MEAN CORPUSCULAR VOLUME 117.3 fL (81.4-99.0); MONOCYTES ABSOLUTE AUTO 0.74 K/uL (0.20-0.90); MONOCYTES PERCENT AUTO 12.8 % (3.3-12.6); NEUTROPHILS PERCENT AUTO 55.1 % (40.0-78.1); PLATELET COUNT,PLT 193 K/uL (130-375); WHITE BLOOD CELL COUNT,WBC 5.8 K/uL (3.2-11.0)
[2024-10-07 01:23] LABS: A/G RATIO 1.1 (1.2-2.2); ALANINE AMINOTRANSFERASE,ALT 29 U/L (12-78); ALKALINE PHOSPHATASE 50 U/L (46-116); ASPARTATE AMNIOTRANSFERASE,AST 30 U/L (15-37); BILIRUBIN TOTAL 0.5 mg/dL (0.2-1.0); BLOOD UREA NITROGEN,BUN 17 mg/dL (7-18); CALCIUM 8.6 mg/dL (8.5-10.1); CARBON DIOXIDE,CO2 25 mmol/L (21-32); CHLORIDE,CL 97 mmol/L (100-108); CREATININE 0.7 mg/dL (0.8-1.3); ESTIMATED GFR 105 mL/min (>60); GLUCOSE RANDOM 80 mg/dL (74-106); POTASSIUM,K 3.8 mmol/L (3.6-5.2); PROTEIN TOTAL,TP 7.5 g/dL (6.4-8.2); SODIUM,NA 133 mmol/L (140-148); TROPONIN I HIGH SENSITIVITY 19.2 pg/mL (<=60.3)
[2024-10-07 01:26] LABS: ANION GAP 14.8 mmol/L (5.0-14.0)
[2024-10-07] MEDS: Albuterol/Ipratropium 3.0-0.5 MG/3 ML Neb Soln NEB ONE (02:06)
[2024-10-07 02:33] VITALS: BP 106/61; PULSE 66
== END 2024-10-07 02:43 | disposition home or self-care (01) ==
LOC: JP.ED 00:36
DX: R06.02 Shortness of breath (principal); I10 Essential (primary) hypertension; I25.10 Atherosclerotic heart disease of native coronary artery without angina pectoris; I25.2 Old myocardial infarction; E78.00 Pure hypercholesterolemia, unspecified; J44.89 Other specified chronic obstructive pulmonary disease; F17.210 Nicotine dependence, cigarettes, uncomplicated; Z90.49 Acquired absence of other specified parts of digestive tract; Z95.2 Presence of prosthetic heart valve; Z88.8 Allergy status to other drugs, medicaments and biological substances; Z79.51 Long term (current) use of inhaled steroids; Z79.01 Long term (current) use of anticoagulants; Z79.899 Other long term (current) drug therapy
CPT/HCPCS: 36415; 71046; 71046-26; 80053; 80307; 83605; 84484; 85025; 85379; 87428-QW; 94640; 99285; J7620

== ENCOUNTER 2025-05-13 22:21 | Emergency (ER) | payer MEDICARE ==
[2025-05-13] MEDS ORDERED: Sodium Chloride 0.9% 10 ML Syringe FLUSH PRN (22:26)
[2025-05-13 22:33] LABS: BASOPHILS ABSOLUTE AUTO 0.06 K/uL (0.00-0.10); BASOPHILS PERCENT AUTO 0.8 % (0.1-1.3); EOSINOPHILS ABSOLUTE AUTO 0.32 K/uL (0.00-0.40); EOSINOPHILS PERCENT AUTO 4.2 % (0.0-5.4); IMMATURE GRAN ABSOLUTE AUTO 0.07 K/uL (0.00-0.23); IMMATURE GRAN PERCENT AUTO 0.9 % (0.0-0.7); LYMPHOCYTES ABSOLUTE AUTO 2.54 K/uL (0.8-3.3); LYMPHOCYTES PERCENT AUTO 33.6 % (11.4-47.7); MONOCYTES ABSOLUTE AUTO 0.74 K/uL (0.20-0.90); MONOCYTES PERCENT AUTO 9.8 % (3.3-12.6); NEUTROPHILS ABSOLUTE AUTO 3.82 K/uL (1.0-7.6); NEUTROPHILS PERCENT AUTO 50.7 % (40.0-78.1); PLATELET COUNT,PLT 302 K/uL (130-375); RED BLOOD CELL COUNT 3.11 M/uL (4.14-5.76); WHITE BLOOD CELL COUNT,WBC 7.6 K/uL (3.2-11.0)
[2025-05-13 22:36] LABS: BASE EXCESS ARTERIAL -3.3 mm/L; BICARBONATE,ARTERIAL 21.5 mmol/L (22.0-26.0); O2 SATURATION ARTERIAL 98.9 % (95.0-98.0); OXYHEMOGLOBIN 91.2 %; PCO2 ARTERIAL 40.3 mmHg (35.0-42.0); PO2 ARTERIAL 165.0 mmHg (75.0-100.0); TOTAL HEMOGLOBIN 13.2 g/dL (13.5-18.0)
[2025-05-13 22:43] LABS: APPEARANCE,URINE CLEAR (CLEAR); GLUCOSE,URINE NEGATIVE (NEGATIVE); OCCULT BLOOD,URINE TRACE-LYSED (NEGATIVE)
[2025-05-13 22:51] LABS: SQUAMOUS EPITHELIAL CELLS,UR NOT SEEN /HPF; UROTHELIAL CELLS,URINE NOT SEEN /HPF
[2025-05-13 23:00] LABS: ALANINE AMINOTRANSFERASE,ALT 28 U/L (12-78); ASPARTATE AMNIOTRANSFERASE,AST 31 U/L (15-37); BILIRUBIN TOTAL 0.3 mg/dL (0.2-1.0); BLOOD UREA NITROGEN,BUN 16 mg/dL (7-18); CARBON DIOXIDE,CO2 26 mmol/L (21-32); CHLORIDE,CL 99 mmol/L (100-108); CREATININE 0.8 mg/dL (0.8-1.3); ESTIMATED GFR 101 mL/min (>60); GLUCOSE RANDOM 70 mg/dL (74-106); POTASSIUM,K 3.8 mmol/L (3.6-5.2); PRO B-TYPE NATRIUR PEPT,BNPPRO 398 pg/mL (5-125); PROTEIN TOTAL,TP 8.4 g/dL (6.4-8.2); SODIUM,NA 133 mmol/L (140-148); TROPONIN I HIGH SENSITIVITY 26.4 pg/mL (<=60.3)
[2025-05-13 23:01] LABS: A/G RATIO 1.1 (1.2-2.2)
[2025-05-13 23:17] LABS: INR 1.8
[2025-05-13] MEDS: LORazepam 2 MG/ML SDV IVPUSH ONE (23:18)
[2025-05-13] MEDS: methylPREDNISolone Sodium Succinate 125 MG/2 ML SDV IVPUSH ONE (23:22)
[2025-05-13] MEDS: Ondansetron 4 MG/2 ML SDV IVPUSH ONE (23:35)
[2025-05-13] MEDS: Magnesium Sulfate 2 GM/50 mL 2 GM in Premix Bag 1 BAG IV ONE (23:40)
[2025-05-13 23:44] LABS: AMPHETAMINES SCREEN, URINE NEGATIVE (NEGATIVE); METHADONE SCREEN, URINE NEGATIVE (NEGATIVE); METHAMPHETAMINES SCREEN, URINE NEGATIVE (NEGATIVE); OXYCODONE SCREEN,URINE NEGATIVE (NEGATIVE); PROPOXYPHENE SCREEN,URINE NEGATIVE (NEGATIVE); THC SCREEN,URINE 50 NG/ML PRESUMPTIVE POSITIVE (NEGATIVE)
[2025-05-14 00:57] VITALS: BP 97/61; PULSE 62
== END 2025-05-14 01:52 | disposition home or self-care (01) ==
LOC: JP.ED 22:21
DX: J44.1 Chronic obstructive pulmonary disease with (acute) exacerbation (principal); I25.10 Atherosclerotic heart disease of native coronary artery without angina pectoris; E78.00 Pure hypercholesterolemia, unspecified; I10 Essential (primary) hypertension; I25.2 Old myocardial infarction; Z95.5 Presence of coronary angioplasty implant and graft; Z88.8 Allergy status to other drugs, medicaments and biological substances; Z79.899 Other long term (current) drug therapy; Z79.01 Long term (current) use of anticoagulants; Z79.02 Long term (current) use of antithrombotics/antiplatelets; Z95.1 Presence of aortocoronary bypass graft
CPT/HCPCS: 36415; 36600; 71045; 80053; 80305; 80307; 81001; 82803; 83605; 83880; 84484; 85025; 85610; 87040; 94640; 96365; 96366; 96368; 96375; 99283; 99285; A9270; J0696; J1271; J2060; J2405; J2919; J3475; J7030; J7050